=== PATIENT | male | born 1950 | race Caucasian/White ===

== ENCOUNTER 2025-02-05 07:48 | Outpatient (CLI) | payer OTHER, SELFPAY ==
--- OUTSIDE RECORDS SUMMARY | 2025-02-04 11:00 | XMS_ITS | Encounter Summary ---
Author Organization [facility] Address [address] [place] [address] Care Team Providers Care Garage Supervisor Name Role Phone Olga Baker MD Primary Care Provider [phone] Reason for Referral * Occupational Therapy (Urgent) - Authorized Specialty Diagnoses / Procedures Referred By Jass lantigua Referred To Contact Occupational Therapy Diagnoses Postoperative state S/P carpal tunnel release S/P cubital tunnel release Procedures OFFICE/OUTPATIENT NEW LOW MDM 30-44 MINUTES OFFICE/OUTPT VISIT,NEW,LEVL IV OFFICE/OUTPT VISIT,NEW,LEVL V OFFICE/OUTPT VISIT,EST,LEVL III OFFICE/OUTPT VISIT,EST,LEVL IV OFFICE/OUTPT VISIT,EST,LEVL V Daniel Pennington NP [address] [place] [address] Phone: tel: fax: [facility] [address] [place] [address] Phone: tel: fax: Referral ID Status Reason Start Date Expiration Date Visits Requested Visits Authorized [id number] Authorized Specialty Services 02/04/2025 01/21/2026 99 99 Reason for Visit * Reason Comments Postop Followup post op right ctr cu bital tunnel sx 01/27/25 Encounter Details Date Type Department Care Team (Late st Contact Info) Description 02/04/2025 11:00 AM CDT Office Visit [facility] [place] [address] [place] [address] Daniel Pennington NP [address] [facility] [place] [address] Postop Followup (post op right ctr cubital tunnel sx 01/27/25) Social History Tobacco Use Types Packs/Day Years Used Date Smoking Tobacco: Never Smokeless Tobacco: Never Tobacco Cessation:Counseling Given: No Alcohol Use Standard Drinks/Week Comments Yes 0 (1 standard drink = 0.6 oz pure alcohol) Just a couple of beers per month. PHQ-2 Answer Date Recorded Patient Health Questionnaire-2 Score 0 08/03/2024 Sex and Gender Information Value Date Recorded Sex Assigned at Male 08/03/2024 7:45 AM AD COPY WRITER Legal Sex Male 7:03 PM CDT Gender Identity Not on file Sexual Orientation Not on file documented as of this encounter Last Filed Vital Signs Vital Sign Reading Time Taken Comments Blood Pressure 106/66 02/04/2025 11:05 AM CDT Pulse 51 02/04/2025 11:05 AM CDT Temperature 36.8 C (98.3 F) 02/04/2025 11:05 AM CDT Respiratory Rate - - Oxygen Saturation - - Inhaled Oxygen Concentration - - Weight 73 kg (161 lb) 02/04/2025 11:05 AM CDT Height 174 cm (5' 8.5) 02/04/2025 11:05 AM CDT Body Mass Index 24.12 02/04/2025 11:05 AM CDT documented in this encounter Patient Instructions * Patient Instructions* Daniel Pennington NP - 02/04/2025 11:00 AM CDT Images from the original note were not included. Post-Operative Instructions [facility] Orthopedics and Sports Medicine Hand Surgery Congratulations on completing the first week after your surgery. Your dressing has been removed andyou are well on the way to recovery after your surgery. General Information You may be achy and sore for a couple of weeks after your surgery. The bruising and swelling that you notice will gradually resolve. Here is a reminder of your post-operative instructions. Surgery: right endoscopic carpal and cubital tunnel releases on 01/27/2025 At your appointment on 02/04/2025 Your dressing was removed Your stitches were removed Steri-strips were placed Over the next few weeks, it is especially important to take care of yourself. You may allow clean, running water from the faucet to contact your surgical site. This means that you may take a shower and wash your hair. Please pat the steri-strips dry. Please do not submerge your surgical site in standing water for the next 3 - 5 days. This means youshould not wash dishes, take a bath, use a hot tub or swim during this time. Allow the steri-strips to fall off. They will begin to peel up from the edges. You may cut off the ???tails?? , but please do not pull the steri-strips off your wound. After the steri-strips fall off and there are no scabs present, please perform scar massage using Aquaphor or Vaseline 4 times daily for 5 minutes at each time. You should do this for 12 weeks. Activity Please continue to move your thumb, fingers and wrist throughout the day. You have been referred to Occupational Therapy at [facility] in [place]. It is important to keep all appointments so that you can regain maximal use of your fingers, hand, and wrist. If youhave not heard from the OT department in 3 days, please call them at [phone]. Avoid local trauma or excessive pressure Lifting You may begin lifting light objects and gradually increase the amount of weight that you lift. If you need to use pain medications to lift things, you are lifting too much weight. Call our office at [phone] if you notice any signs of infection. This includes if you develop a fever, or if your surgical site becomes red, swollen, more painful or if you notice drainage. Taking Care of Yourself after Surgery Post-operative Scar Massage [facility] Department of Hand Surgery All About Scars Your body begins the healing process right after surgery. While your incision heals, a scar forms.Scar tissue is not like regular skin. Scar tissue is more rigid and less elastic than skin without a scar. Without proper care, your scar can become thick and cause adhesions. Adhesions are bands of scar tissue that can join two surfaces of the body that are usually separate. When this occurs, yourscar and the area around it can become hard, painful and can limit your ability to move without discomfort or pain. For your scar to heal properly and for it to be mobile and flexible, it is important to perform scar massage several times daily. While you should perform scar massage at home, it does not replace going to your Occupational Therapy appointments. In fact, you should also go to your occupational therapy appointments so that you can regain optimal function. What Is Scar Massage? Scar massage is an activity that you can do at home to help your scar heal, to make it less sensitive, and to avoid adhesions. This type of massage includes rubbing and deep pressure over the scar. When Should I Start Scar Massage? You can start massaging your scar when your steri-strips fall off and there are no scabs present. Do I Need Special Equipment or Supplies to Do Scar Massage? The only supplies that you need to perform scar massage are plain Vaseline??? (petroleum jelly) or Aquaphor??? (petroleum) without added aloe vera, colors or perfumes. You can buy these at most stores or pharmacies. How Do I Do Scar Massage? Place a small amount of Vaseline or Aquaphor directly on your scar. Using your other hand, put pressure on the scar over the Vaseline or Aquaphor and rub over the scarclockwise, counterclockwise, up and down and then side to side for 5 minutes, 2 - 4 times daily for12 weeks Questions or Concerns? If you have questions or concerns about how to do scar massage, please call our office at [phone] or send a Mezmer[employer] message. documented in this encounter Progress Notes * Daniel Pennington NP - 02/04/2025 11:00 AM CDT Images from the original note were not included. OFFICE VISIT SUBJECTIVE Reason for Visit: Postop Followup (post op right ctr cubital tunnel sx 01/27/25) History of Present Illness: Patient is here for post op evaluation, 1 week s/p Right ECTR and Right ECUTR performed by Dr. Violeta Brown on 01/27/2025. Has no new complaints or acute events to report, and describes uneventful recovery course with mildpost-op pain and minimal to no need for pain medications. Denies fevers, chills. Has resumed ADLs with minimal limitations. Patient reports resolution of pre-op night symptoms and painful paresthesias with ADLs. Reports no interval sensorimotor deficits and describes mild pillar pain associated with increase activity level. Patient verbalizes satisfaction with the surgical procedure. ROS: Constitutional: Negative for chills and fever. Respiratory: Negative for chest tightness and shortness of breath. Cardiovascular: Negative for chest pain and palpitations. Skin: Negative for rash and wound. Musculoskeletal: See HPI. Neurological: See HPI. Negative for light-headedness, dizziness History: Past Medical History[1] Past Surgical History[2] Family History[3] Social History[4] Medications and Allergies: Current Outpatient Medications: Ascorbic Acid (VITAMIN C) 100 MG Chew Tab, Chew 1 tablet by mouth 2 (two) times a day., Disp: , Rfl: Cyanocobalamin (VITAMIN B-12) 500 MCG SL Tab, Place 1 tablet under the tongue daily., Disp: , Rfl: Ferrous Sulfate (IRON) 325 (65 Fe) MG tablet, Take 1 tablet by mouth once daily with breakfast, Disp: 90 tablet, Rfl: 1 finasteride (PROSCAR) 5 MG tablet, Take 1 tablet (5 mg total) by mouth daily., Disp: , Rfl: fish oil 1000 MG Cap capsule, Take 1 capsule (1,000 mg total) by mouth daily., Disp: , Rfl: loratadine (CLARITIN) 10 MG tablet, Take 1 tablet (10 mg total) by mouth daily. (Patient taking differently: Take 1 tablet (10 mg total) by mouth daily as needed for Allergies.), Disp: 30 tablet, Rfl: 5 losartan (COZAAR) 25 MG tablet, Take 2 tablets (50 mg total) by mouth daily. (Patient taking differently: Take 1 tablet (25 mg total) by mouth daily.), Disp: 180 tablet, Rfl: 3 multi vitamin/minerals (THERA-M ENHANCED) tablet, Take 1 tablet by mouth daily., Disp: , Rfl: tamsulosin (FLOMAX) 0.4 MG Cap, Take 1 capsule (0.4 mg total) by mouth daily., Disp: 90 capsule, Rfl: 3 pravastatin (PRAVACHOL) 10 MG tablet, Take 1 tablet (10 mg total) by mouth nightly at bedtime. at bedtime (Patient not taking: Reported on 02/04/2025), Disp: 90 tablet, Rfl: 3 Review of patient's allergies indicates: Allergen Reactions Atorvastatin Unknown Poorly tolerated OBJECTIVE Vital Signs: Filed Vitals: 02/04/25 1105 BP: 106/66 Pulse: (!) 51 Temp: 98.3 ??F (36.8 ??C) TempSrc: Temporal Weight: 73 kg (161 lb) Height: 1.74 m (5' 8.5) Body mass index is 24.12 kg/m??. Physical Exam: Physical Exam Constitutional: He appears well-developed and well-nourished. Head: Normocephalic. Pulmonary/Chest: Effort unlabored. No respiratory distress. Neurological: He is alert and oriented to person, place, time and situation. Psychiatric: He has a normal mood and affect. Upper Extremity Exam: Right Upper Extremity Upper Arm : no tenderness, bruising, swelling, masses, deformities Elbow: Inspection/Palpation: Surgical scar appears well healed, clean and dry, without erythema, warmth, discharge, induration, tenderness, swelling, bruising, skin breakdown. All muscle compartments soft, no joint effusion present, no deformities noted, no masses present, no arthritic changes. Active ROM: Full active and passive range of motion of elbow. No interval neurological deficits compared to pre-op baseline. Forearm: no tenderness to palpation, no swelling, no forearm deformities noted, no masses present. Hand/Wrist : Inspection/Palpation: Surgical scars appear well healed, clean and dry, without erythema, warmth, discharge, induration, tenderness, swelling, bruising, skin breakdown. All muscle compartments soft, no joint effusion present, no deformities noted, no masses present, no arthritic changes. No crepitus hand/fingers on ROM testing, no deformities of hand or fingers. Good active ROM of thumb includingopposition, all fingers and wrist. Able to form a composite fist. No interval neurological deficitscompared to pre-op baseline. Capillary refill < 2 seconds. ASSESSMENT Jorden Ocampo was seen today for postop followup. Diagnoses and all orders for this visit: Postoperative state - Ambulatory referral to Occupational Therapy S/P carpal tunnel release - Ambulatory referral to Occupational Therapy S/P cubital tunnel release - Ambulatory referral to Occupational Therapy PLAN Treatment/Counselling: DISCUSSED UNEVENTFUL POST OP COURSE WITH GOOD OUTCOMES AND PROGNOSIS GIVEN CLINICAL COURSE THUS FAR. Instructed to not submerge the surgical site in water for the next 3 - 5 days, however may shower with clean running water from the tap, and afterwards, pat the area dry. Instructed to not remove steri-strips, but instead to allow them to fall off. Continue light activity with gradual increase in activity level and weight bearing as tolerated. Instructed in scar massage after steri-strips fall off, using Aquaphor or Vaseline 2-4 times daily x 5 minutes at each time. Recommendations for ROM exercises to maximize functional outcomes. Avoid local trauma or excessive pressure. Discussed signs of infection and need to return for assessment if these occur. OT orders written Post op instructions provided verbally and in writing. All questions were answered to patient's satisfaction. Patient voices understanding and agreement. Acknowledgment of shared decision making. Return to the clinic as needed. Portions of this note have been produced using speech recognition software and may contain errors related to that system including errors in grammar, punctuation, and spelling, as well as words and phrases that may be missing, incorrect or inappropriate. If there are any questions or concerns please feel free to contact the dictating provider for clarification. DANIEL PENNINGTON NP 02/04/2025 Cc. Olga Baker MD No ref. provider found [1] Past Medical History: Diagnosis Date Anemia Arthritis 2021 In both hands Cervical stress fracture Hernia cerebri ([facility]) Hypertension Influenza vaccine administered 2018 Intestinal obstruction ([facility]) 07/08/2012 Overview: Had to have surgical intervention Neuromuscular disorder ([facility]) 2023 Nerves in hand, loss of feeling, pain. Renal calculi [2] Past Surgical History: Procedure Laterality Date ABDOMINAL SURGERY COLONOSCOPY N/A 12/23/2019 LIMITED COLONOSCOPY performed by Devan Patricio MD at [facility] OR COLONOSCOPY N/A 12/30/2019 COLONOSCOPY performed by Devan Patricio MD at [facility] OR COLONOSCOPY FLX DX W/COLLJ SPEC WHEN PFRMD GASTRIC BYPASS HAND SURGERY Left 12/16/[address] Brown HAND SURGERY Left 12/16/[address] Brown HAND SURGERY Right 01/27/[address] Brown HAND SURGERY Right 01/27/[address] Brown HERNIA REPAIR 2013 N/A LITHOTRIPSY REMV CATARACT EXTRACAP,INSERT LENS Bilateral [3] Family History Problem Relation Name Age of Onset Diabetes Mother Linda Other (cardiac disorder) Mother Linda Other (CHF) Mother Linda Other (Hepatic failure) Mother Linda Heart Disease Mother Linda Diabetes Father Jorden Hypertension Father Jorden Other (cardiac disorder) Father Jorden Other (malignant neoplasm of kidney) Father Jorden Other (myocardial infarction) Father Jorden [4] Social History Tobacco Use Smoking status: Never Smokeless tobacco: Never Vaping Use Vaping status: Some Days Substances: CBD Substance Use Topics Alcohol use: Yes Comment: Just a couple of beers per month. Drug use: Yes Frequency: 5.0 times per week Types: Marijuana documented in this encounter Plan of Treatment Upcoming Encounters Date Type Department Care Team (Late st Contact Info) Description 02/08/2025 9:45 AM CDT Appointment [facility] [address] [place] [address] [place] [address] [place], [place] [id number] Daniel Pennington NP [address] [place] [address] 05/21/2025 7:40 AM AD COPY WRITER Laboratory Only [facility] Internal [facility] [address] [place] [address] 05/28/2025 7:40 AM AD COPY WRITER Office Visit [facility] Family & Internal [facility] [address] [place] [address] [place] [address] [facility]. [address] [address] Scheduled Referrals Name Type Priority Associated Diagnoses Orde r Schedule Ambulatory referral to Occupational Therapy Referral Routine Postoperative state S/P carpal tunnel release S/P cubital tunnel release Ordered: 02/04/2025 documented as of this encounter Visit Diagnoses Diagnosis Postoperative state- Primary Other postprocedural status S/P carpal tunnel release Other postprocedural status S/P cubital tunnel release Other postprocedural status documented in this encounter Additional Health Concerns Assessment Noted Time PHQ-9 Depression Total Score: 1 10/31/19 22 2:57 PM CDT documented as of this encounter Care Teams Garage Supervisor Relationship Specialty [place] [address] [facility]. [address] [place] [address] PCP - General FAMILY PRACTICE 10/18/22 documented as of this encounter
--- NOTE | 2025-02-05 07:55 | ECG_ITS ---
Test Date: 2025-02-05 08:09:53 Measurements Intervals Fries Rate: 51 P: 91 WA: 177 QRS: 37 QRSD: 99 T: 9 QT: 399 QTc: 369 Interpretive Statements SINUS BRADYCARDIA ST-T WAVE ABNORMALITY- INFERIOR LEADS BASELINE ARTIFACT- I, II, III, AVR, AVL, AVF BORDERLINE ECG No previous ECG available for comparison Electronically Signed On 02-05-2025 08:17:37 CDT by Derick Ziegler D.O.
--- OUTSIDE RECORDS SUMMARY | 2025-02-05 07:56 | XMS_ITS | Encounter Summary ---
Author Organization [facility] Address [address] [place] [address] Care Team Providers Care Rotational Moulding Operator Name Role Phone Tony Huerta DO Primary Care Provider Unav ailable Encounter Details Date Type Department Care Team (Late st Contact Info) Description 03/30/2003 Outpatient Historical [facility]3] Primary Care [address] [phone] Nery Cueto MD NO ADDRESS ON FILE Social History Tobacco Use Types Packs/Day Years Used Date Smoking Tobacco: Never Assessed Sex and Gender Information Value Date Recorded Sex Assigned at Not on file Legal Sex Male 2:37 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
--- OUTSIDE RECORDS SUMMARY | 2025-02-05 07:56 | XMS_ITS | Encounter Summary ---
Author Organization [facility] Address [address] [place] [address] Care Team Providers Care Public Space Attendant Name Role Phone Tony Huerta DO Primary Care Provider Unav ailable Encounter Details Date Type Department Care Team (Late st Contact Info) Description 10/30/2002 Outpatient Historical [facility] Gopi Altamirano MD [address] [place] [address] [place] [address] SCREENING MAL NEOP-COLON (Primary Dx) Social History Tobacco Use Types Packs/Day Years Used Date Smoking Tobacco: Never Assessed Sex and Gender Information Value Date Recorded Sex Assigned at Not on file Legal Sex Male 2:37 AM GAS DISTRIBUTION AND EMERGENCY CLERK Gender Identity Not on file Sexual Orientation Not on file documented as of this encounter Plan of Treatment Not on file documented as of this encounter Visit Diagnoses Diagnosis Special screening for malignant neoplasms, colon- Primary documented in this encounter Care Teams Public Space Attendant Relationship Specialty Start Date End Date Tony Huerta DO NO ADDRESS ON FILE PCP - General 10/30/02 documented as of this encounter
--- OUTSIDE RECORDS SUMMARY | 2025-02-05 07:56 | XMS_ITS | Encounter Summary ---
Author Organization [facility] Address 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
--- OUTSIDE RECORDS SUMMARY | 2025-02-05 07:56 | XMS_ITS | Encounter Summary ---
Author Organization [facility] Address [address] [place] [address] Care Team Providers Care Mining Engineer Name Role Phone Tony Huerta DO Primary Care Provider Unav ailable Encounter Details Date Type Department Care Team (Late st Contact Info) Description 12/24/2002 Outpatient Historical [facility] Primary Care [address] [phone] Tony Heurta DO NO ADDRESS ON FILE Social History Tobacco Use Types Packs/Day Years Used Date Smoking Tobacco: Never Assessed Sex and Gender Information Value Date Recorded Sex Assigned at Not on file Legal Sex Male 2:37 AM WEB CONSULTANT Gender Identity Not on file Sexual Orientation Not on file documented as of this encounter Plan of Treatment Not on file documented as of this encounter Visit Diagnoses Not on filedocumented in this encounter Care Teams Mining Engineer Relationship Specialty Start Date End Date Tony Huerta DO NO ADDRESS ON FILE PCP - General 10/30/02 documented as of this encounter
--- OUTSIDE RECORDS SUMMARY | 2025-02-05 07:56 | XMS_ITS | Encounter Summary ---
Author Organization [facility] Address 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
--- OUTSIDE RECORDS SUMMARY | 2025-02-05 07:56 | XMS_ITS | Encounter Summary ---
Author Organization [facility] Address 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
--- OUTSIDE RECORDS SUMMARY | 2025-02-05 07:56 | XMS_ITS | Encounter Summary ---
Author Organization [facility] Address 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
--- OUTSIDE RECORDS SUMMARY | 2025-02-05 07:56 | XMS_ITS | Encounter Summary ---
Author Organization [facility] Address 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
--- OUTSIDE RECORDS SUMMARY | 2025-02-05 07:56 | XMS_ITS | Encounter Summary ---
Author Organization [facility] Address [address] [place] [address] Care Team Providers Care Laboratory Animal Caretaker Name Role Phone Tony Huerta DO Primary Care Provider Unav ailable Encounter Details Date Type Department Care Team (Late st Contact Info) Description 04/30/2003 Outpatient Historical 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
--- OUTSIDE RECORDS SUMMARY | 2025-02-05 07:56 | XMS_ITS | Encounter Summary ---
Author Organization [facility] Address 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
--- OUTSIDE RECORDS SUMMARY | 2025-02-05 07:56 | XMS_ITS | Encounter Summary ---
Author Organization [facility] Address 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
--- OUTSIDE RECORDS SUMMARY | 2025-02-05 07:56 | XMS_ITS | Encounter Summary ---
Author Organization [facility] Address 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
--- OUTSIDE RECORDS SUMMARY | 2025-02-05 07:56 | XMS_ITS | Encounter Summary ---
Author Organization [facility] Address 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
--- OUTSIDE RECORDS SUMMARY | 2025-02-05 07:57 | XMS_ITS | Encounter Summary ---
Author Organization [facility] Address [address] [place] [address] Care Team Providers Care Head Grinder Name Role Phone Olga Baker MD Primary Care Provider [phone] Encounter Details Date Type Department Care Team (Late st Contact Info) Description 09/01/2024 Interactive Investor[employer] Message Enc [facility] Medical Group Family & Internal Medicine [address] [phone] [place] [id number] [place] [address]. [address] [place] [address] Celecoxib Social History Tobacco Use Types Packs/Day Years Used Date Smoking Tobacco: Never Smokeless Tobacco: Never Alcohol Use Standard Drinks/Week Comments Yes 0 (1 standard drink = 0.6 oz pure alcohol) Just a couple of beers per month. PHQ-2 Answer Date Recorded Patient Health Questionnaire-2 Score 0 08/03/2024 Sex and Gender Information Value Date Recorded Sex Assigned at Male 08/03/2024 7:45 AM CREATIVE MANAGER Legal Sex Male 7:03 PM CDT Gender Identity Not on file Sexual Orientation Not on file documented as of this encounter Progress Notes * Alesia Holman MA - 09/02/2024 8:37 AM CDT See patients Tittathart message documented in this encounter Plan of Treatment Upcoming Encounters Date Type Department Care Team (Late st Contact Info) Description 02/08/2025 9:[address] [facility] [address] [place] [address] [place] [address] [place] [address] Daniel Pennington, FLORENTINO [address] [place] [address] 05/21/2025 7:40 AM CREATIVE MANAGER Laboratory Only [facility] Family & Internal [facility] [address] [place] [address] 05/28/2025 7:40 AM CREATIVE MANAGER Office Visit [facility] Internal [facility] [address] [place] [address] [place] [address] [facility] [address] [place] [address] documented as of this encounter Visit Diagnoses Not on filedocumented in this encounter Additional Health Concerns Assessment Noted Time PHQ-9 Depression Total Score: 1 10/31/19 22 2:57 PM CDT documented as of this encounter Care Teams Head Grinder Relationship Specialty [place] [address] [address] [place] [address] PCP - General FAMILY PRACTICE 10/18/22 documented as of this encounter
--- OUTSIDE RECORDS SUMMARY | 2025-02-05 07:57 | XMS_ITS | Encounter Summary ---
Author Organization [facility] Address [address] [place] [address] Care Team Providers Care Routing Equipment Tender Name Role Phone Rekha Helms MD Primary Care Provider [phone] Olga Baker MD Primary Care Provider [phone] Encounter Details Date Type Department Care Team (Late Contact Info) Description 12/28/2019 Prep for Procedure [facility] Day [facility] [address] [place], [place] [id number] Devan Patricio MD [address] [address] Social History Tobacco Use Types Packs/Day Years Used Date Smoking Tobacco: Never Smokeless Tobacco: Never Alcohol Use Standard Drinks/Week Comments Yes 0 (1 standard drink = 0.6 oz pur e alcohol) socially PHQ-2 Answer Date Recorded PHQ-2 Score - If the patient scores above 3, please move on to questions 3-9 0 12/02/2019 Sex and Gender Information Value Date Recorded Sex Assigned at Male 08/03/2024 7:45 AM PEST CONTROL WORKER HELPER Legal Sex Male 7:03 PM CDT Gender Identity Not on file Sexual Orientation Not on file COVID-19 Exposure Response Date Recorded In the last month, have you been in contact with someone who was confirmed or suspected to have Coronavirus / COVID-19? No / Unsure 12/30/2019 9:43 AM CDT documented as of this encounter Plan of Treatment Upcoming Encounters Date Type Department Care Team (Late st Contact Info) Description 02/08/2025 9:[address] [facility] [address] [place] [address] [place] [address] [place] [address] Daniel Pennington, LINING BRUSHER [address] [place] [address] 05/21/2025 7:40 AM PEST CONTROL WORKER HELPER Laboratory Only [facility] Family & Internal [facility] [address] [place] [address] 05/28/2025 7:40 AM PEST CONTROL WORKER HELPER Office Visit [facility] Family & Internal [address] [address] [place] [address] [address] [place] [address] documented as of this encounter Visit Diagnoses Not on filedocumented in this encounter Additional Health Concerns Infection Onset Date Last Indicated Resolved Time COVID-19 Rule Out 12/28/2019 12/28/2019 12/30/2019 12:28 AM CDT documented as of this encounter Care Teams Routing Equipment Tender Relationship Specialty Start Date End Date Rekha Helms MD PCP - General INTERNAL MEDICINE 12/09/19 10/17/22 [place] [address] [address] [place] [address] PCP - General FAMILY PRACTICE 10/18/22 documented as of this encounter
--- OUTSIDE RECORDS SUMMARY | 2025-02-05 07:57 | XMS_ITS | Encounter Summary ---
Author Organization [facility] Address [address] [place] [address] Care Team Providers Care Appointment Manager Name Role Phone Olga Baker MD Primary Care Provider [phone] Encounter Details Date Type Department Care Team (Late st Contact Info) Description 11/26/2023 [employer] Message Enc [facility] Medical Group Family & Internal Medicine [facility] [address] [place] [address] [facility] Provider concern Social History Tobacco Use Types Packs/Day Years Used Date Smoking Tobacco: Never Smokeless Tobacco: Never Alcohol Use Standard Drinks/Week Comments Yes 0 (1 standard drink = 0.6 oz pure alcohol) Just a couple of beers per month. PHQ-2 Answer Date Recorded Patient Health Questionnaire-2 Score 1 10/30/2023 Sex and Gender Information Value Date Recorded Sex Assigned at Male 08/03/2024 7:45 AM LINSEED OIL ORDER FILLER Legal Sex Male 7:03 PM CDT Gender Identity Not on file Sexual Orientation Not on file documented as of this encounter Plan of Treatment Upcoming Encounters Date Type Department Care Team (Late st Contact Info) Description 02/08/2025 9:[address] [facility] [address] [place], [place] [id number] [place] [address] [place], [place] [id number] Daniel Pennington, STRESS ANALYST [address] [place] [address]. [place], [place] [id number] 05/21/2025 7:40 AM LINSEED OIL ORDER FILLER Laboratory Only [facility] Family & Internal Medicine [address] [address] 05/28/2025 7:40 AM LINSEED OIL ORDER FILLER Office Visit [facility] Family & Internal [address] [address] [place] [address] [employer] [address] [place] [address] documented as of this encounter Visit Diagnoses Not on filedocumented in this encounter Additional Health Concerns Assessment Noted Time PHQ-9 Depression Total Score: 1 10/31/19 22 2:57 PM CDT documented as of this encounter Care Teams Appointment Manager Relationship Specialty [place] [address] [address] [place] [address] PCP - General FAMILY PRACTICE 10/18/22 documented as of this encounter
--- OUTSIDE RECORDS SUMMARY | 2025-02-05 07:57 | XMS_ITS | Encounter Summary ---
Author Organization [facility] Address 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
--- OUTSIDE RECORDS SUMMARY | 2025-02-05 07:57 | XMS_ITS | Encounter Summary ---
Author Organization [facility] Address 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
--- OUTSIDE RECORDS SUMMARY | 2025-02-05 07:57 | XMS_ITS | Encounter Summary ---
Author Organization [facility] Address 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
--- OUTSIDE RECORDS SUMMARY | 2025-02-05 07:57 | XMS_ITS | Clinical Summary ---
Author Organization [facility] Address [address] 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 Gender Identity Not on file Sexual Orientation Not on file Plan of Treatment Health Maintenance Due Date Last Done Comments DTAP/TDAP/TD VACCINES (1 - Tdap) 1970 COLORECTAL SCREENING 02/12/1996 Colorectal Cancer Screening 02/12/1996 FIT-DNA Q 3 years 02/12/1996 FIT/FOBT Q 1 year 02/12/1996 Flex Sig/CT Colonography Q 5 years 02/12/1996 PNEUMOCOCCAL VACCINE 50+ YEARS (1 of 1 - PCV) 02/12/20 ZOSTER VACCINE (1 of 2) 2001 INFLUENZA VACCINE (#1) 2025 RSV VACCINE (60+ or ) (1 - 1-dose 75+ series) 2026 Care Teams Guard Immigration Relationship Specialty Start Date End Date Tony Huerta DO NO ADDRESS ON FILE PCP - General 10/30/02
--- OUTSIDE RECORDS SUMMARY | 2025-02-05 07:57 | XMS_ITS | Clinical Summary ---
Author Organization [facility] Address [address] [place] [address] Care Team Providers Care Production Control Analyst Name Role Phone Olga Baker MD Primary Care Provider [phone] Allergies Active Allergy Reactions Criticality Noted Date Comments Atorvastatin Unknown Low 03/29/2015 Poorly tolerated Medications fish oil 1000 MG Cap capsule Take 1 capsule (1,000 mg total) by mouth daily. 05/22/20 16 Active multi vitamin/minerals (THERA-M ENHANCED) tablet Take 1 tablet by mouth daily. 01/14/20 18 Active Cyanocobalamin (VITAMIN B-12) [address] 1 tablet under the tongue daily. 02/08/20 18 Active loratadine (CLARITIN) 10 MG tabletIndications: Seasonal allergies Take 1 tablet (10 mg total) by mouth daily. 30 tablet 5 11/05/19 23 Active Additional Information Patient taking differently:10 mg OralDAILY PRN, Allergies, Reported on 02/04/2025 finasteride (PROSCAR) 5 MG tablet Take 1 tablet (5 mg total) by mouth daily. 09/14/19 24 Active Ascorbic Acid (VITAMIN C) 100 MG Chew Tab Chew 1 tablet by mouth 2 (two) times a day. Active pravastatin (PRAVACHOL) 10 MG tabletIndications: Mixed hyperlipidemia Take 1 tablet (10 mg total) by mouth nightly at bedtime. at bedtime 90 tablet 3 08/03/19 25 Active Additional Information Patient not taking.Reported on 02/04/2025 tamsulosin (FLOMAX) 0.4 MG CapIndications:Erik ign prostatic hyperplasia with urinary hesitancy Take 1 capsule (0.4 mg total) by mouth daily. 90 capsule 3 08/03/19 25 Active losartan (COZAAR) 25 MG tabletIndications: Primary hypertension Take 2 tablets (50 mg total) by mouth daily. 180 tablet 3 08/03/19 25 Active Additional Information Patient taking differently: 25 mgOral Daily, Reported on 02/04/2025 Ferrous Sulfate (IRON) 325 (65 Fe) MG tabletIndications: Iron deficiency anemia secondary to inadequate dietary iron intake Take 1 tablet by mouth once daily with breakfast 90 tablet 1 10/28/19 25 Active traMADol (ULTRAM) 50 MG tabletIndications: Acute Pain < 7 Day Supply Take 1 tablet (50 mg total) by mouth every 6 (six) hours as needed for Pain. Indications: Acute Pain < 7 Day Supply 20 tablet 01/28/20 25 025 Discontin ued(Thera py completed ) HYDROcodone-acetam inophen (NORCO) 5-325 MG tabletIndications: Acute Pain < 7 Day Supply Take 1-2 tablets by mouth every 6 (six) hours as needed for Pain. Indications: Acute Pain < 7 Day Supply For Moderate Pain 15 tablet 01/28/20 25 025 Discontin ued(Thera py completed ) naloxone (NARCAN) 4 MG/0.1ML nasal spray 1 spray by Nasal route as needed for Opioid reversal. may repeat every 2 to 3 minutes in alternating nostrils until medical assistance becomes available 1 each 01/28/20 25 025 Discontin ued(Thera py completed ) Active Problems Problem Noted Date Diagnosed Date Carpal tunnel syndrome on left 01/21/2025 Cubital tunnel syndrome on left 01/21/2025 Carpal tunnel syndrome on right 12/02/2024 Cubital tunnel syndrome on right 12/02/2024 Iron deficiency anemia secon humera to inadequate dietary iron intake 05/13/2023 Seasonal allergies 05/13/2023 Benign prostatic hyperplasia with urinary hesita ncy 11/04/2022 Paronychia of great toe of left foot 03/24/2020 Ingrowing toenail of left foot 03/18/2020 Anemia, unspecified type 12/25/2019 Overview (12/25/2019): Added automatically from request for surgery [id number] Screening for colon cancer 12/01/2019 Overview (12/01/2019): Added automatically from request for surgery [id number] Lump in testis 07/15/2019 Assessment & Plan (07/15/2019 12:28 PM POULTRY PACKER): Painful small. Would like to see urologist so referral placed Mixed hyperlipidemia 05/22/2016 Assessment & Plan (07/15/2019 12:27 PM POULTRY PACKER): Con't fish oil. Will get cholesterol panel Type 2 diabetes mellitus wit hout complication ([facility]) 06/07/2015 Overview (11/23/2024): Overview: Bariatric surgery 2011, well controlled since then. 05/31 hgba1c 5.8% Bariatric surgery 2011, well controlled since then. 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 Chronic prostatitis 05/26/2013 Overview (08/25/2018): Overview: Also mild bilat epididymitis. 01/22, saw Dr. Proctor. 05/29 currently seeing a uro in [facility] Essential (primary) hypertension 05/26/2013 Overview (08/25/2018): Overview: 05/29 well controlled on cozaar Assessment & Plan (07/15/2019 12:26 PM POULTRY PACKER): Well controlled. Will get labs con't current regimen Calculus of kidney 07/08/2012 Overview (08/25/2018): Overview: Had lithotripsy Metabolic syndrome 11/29/2009 Resolved Problems Problem Noted Date Diagnosed Date Resolved Date Intestinal obstruction ([facility]) 07/08/2012 07/15/2019 Overview (08/25/2018): Overview: Had to have surgical intervention Encounters Date Type Department Care Team Description 02/04/2025 11:00 AM CDT Office Visit [facility] Orthopedic & Sports Medicine [facility] [address] [place] [address] Daniel Pennington NP Postop Followup (post op right ctr cubital tunnel sx 01/27/25) 02/04/2025 Travel 01/27/2025 1:23 PM CDT - 01/27/2025 2:[address] [place] [address] Quinton Brown MD right endoscopic carpal tunnel release 01/27/2025 1:06 PM CD[address] Anesthesia Event [facility] [place] [address] Aubree Ulloa MD Jackson, Samantha Rae, FNP 01/27/2025 10:09 AM CDT - 01/27/2025 4:00 PM CDT Hospital Encounter [facility] [place] [address] Quinton Brown MD Discharge Disposition: Home or Self Care (Routine Discharge) 01/27/2025 Travel 01/22/2025 Sling Message Enc [facility] [place] [address] [facility] Provider SURGERY INSTRUCTIONS 01/21/2025 8:40 AM CDT Office Visit [facility] Orthopedic & Sports [facility] [address] [place] [address] Daniel Pennington NP Follow Up (RT CTS and Cubital tunnel) 01/21/2025 Prep for Procedure [facility] Orthopedic & Sports Medicine - [facility] [address] [place] [address] Quinton Brown MD 01/21/2025 Travel 01/17/2025 Results Follow-Up [facility] Family & Internal [facility] [address] [place] [phone] Olga Baker MD TISSUE EXAM BY PATHOLOGIST (QUEST ONLY) 01/08/2025 2:00 PM CDT Office Visit [facility] Family & Internal [facility] [address] [place] [address] Olga Baker MD Weight Check 01/08/2025 Scan [employer] HEALTH INFO SRVCS Scanned, [facility] 01/08/2025 Travel 01/06/2025 9:06 AM CDT - 01/06/2025 11:59 PM CDT Hospital Encounter [facility] Occupational Therapy [address] [place] [address] Ciara Gómez V, Daniel Botello NP Carpal Tunnel Discharge Disposition: Home or Self Care (Routine Discharge) 01/06/2025 Travel 01/01/2025 Telephone [facility] Internal [facility] [id number] [place] [phone] Olga Baker MD Referral 12/24/2024 1:43 PM CDT - 12/24/2024 11:59 PM CDT Hospital Encounter [facility] Occupational Therapy [address] [place] [phone] Ciara Gómez OT Loar, Ricki S, NP Carpal Tunnel Discharge Disposition: Home or Self Care (Routine Discharge) 12/24/2024 Travel 12/23/2024 8:40 AM CDT Office Visit [facility] Orthopedic & Sports Medicine - [place] [address] [place] [address] Daniel Pennington NP Postop Followup (post op left ctr cubital tunnel sx 12/16/04) 12/23/2024 Travel 12/16/2024 8:30 AM CDT - 12/16/2024 9:57 AM CDT Surgery [facility] [place] [address] Quinton Brown MD left endoscopic carpal tunnel release 12/16/2024 8:01 AM CDT Anesthesia Event [facility] [address] Aubree Ulloa MD Jackson, Samantha Rae, BUILD TECHNICIAN 12/16/2024 6:10 AM CDT - 12/16/2024 10:33 AM CDT Hospital Encounter [facility] [place] [address] Quinton Brown MD Discharge Disposition: Home or Self Care (Routine Discharge) 12/16/2024 Travel 12/09/2024 Travel 12/02/2024 Prep for Procedure [facility] Orthopedic & Sports Medicine [facility] [address] [place] [address] Quinton Brown MD 12/01/2024 8:00 AM CDT Office Visit [facility] Orthopedic & Sports Medicine [facility] [address] [place] [address] Daniel Pennington, FLORENTINO New Patient (Bilateral CTS) 12/01/2024 Travel 11/23/2024 7:40 AM CDT Office Visit [facility] Family & Internal Medicine [address] [phone] Olga Baker MD Follow Up; Pain (Pt c/o increased pain from nerve conduction on 11/16. ) 11/23/2024 Telephone [facility] Family & Internal Medicine [address] [phone] Olga Baker MD Follow Up Call 11/23/2024 Travel 11/20/2024 Telephone [facility] Family & Internal Medicine [facility] [address] [place] [address] Olga Baker MD Results; Question 11/17/2024 Results Follow-Up [facility] Family & Internal Medicine [facility] [address] [place] [address] Olga Baker MD NCVS\EMG (OFallon) 11/16/2024 8:00 AM CDT Office Visit [facility] Multispecialty Care - [facility] [address] [facility], [address] [place] [address] Olga Baker MD Govindarajan, Raghav, MD EMG Testing (BUE*CARPAL TUNNEL SYNDROME LEFT WRIST) 11/16/2024 Scan [employer] INFO SRVCS Scanned, [facility] EMG (SCAN) 11/16/2024 Travel from Last 3 Months Immunizations Immunization Administration Dates Next Due Fluarix (IIV4) 04/23/2023 Fluzone High Dose (IIV, triv alent, 0.5mL) 05/01/2024 Fluzone High Dose - >Age 65 (Prefilled Syringe) 05/01/2022,03/24/2021,03/27/2020,2018,05/22/2016 Influenza (Generic) 07/15/2019, 5,05/26/2013,2010,03/03/2010,06/03/2009,06/24/2008 Influenza Adult (Generic) 05/22/2016 PFIZER COVID-19 (ARGUETA CAP), MRNA, LNP-S, PF, 30 MCG/0.3 ML [place], IM 10/30/2021 PFIZER COVID-19 (ORIGINAL FORMULATION, PURPLE CAP) mRNA, LNP-S, PF, 30 MCG/0.3 ML DOSE 05/05/2021,09/16/2020,08/26/2020 PFIZER COVID-19 BIVALENT (12 +) mRNA, LNP-S, PF, 30 MCG/0.3 ML DOSE 07/06/2022 Pneumococcal (Pneumovax 23) 07/15/2019, 6 Pneumococcal (Prevnar 13) 05/03/2021 Shingrix 11/27/2019,09/25/2019 Td (Tenivac) preservative free 12/02/2019 Tdap (Generic) 07/08/2012 Zoster (Zostavax) [address] Unt/0.65Ml 07/08/2012 Family History Medical History Relation Comments Diabetes Father Hypertension Father cardiac disorder Father malignant neoplasm of kidney Father myocardial infarction Father CHF Mother Diabetes Mother Heart Disease Mother Hepatic failure Mother cardiac disorder Mother Relation Status Comments Father Mother Social History Tobacco Use Types Packs/Day Years [...] Sex Assigned at Male 08/03/2024 7:45 AM POULTRY PACKER Legal Sex Male 7:03 PM CDT Gender Identity Not on file Sexual Orientation Not on file Last Filed Vital Signs Vital Sign Reading Time Taken Comments Blood Pressure 106/66 02/04/2025 11:05 AM CDT Pulse 51 02/04/2025 11:05 AM CDT Temperature 36.8 C (98.3 F) 02/04/2025 11:05 AM CDT Respiratory Rate 16 01/27/2025 3:30 PM CDT Oxygen Saturation 96% 01/27/2025 3:30 PM CDT Inhaled Oxygen Concentration - - Weight 73 kg (161 lb) 02/04/2025 11:05 AM CDT Height 174 cm (5' 8.5) 02/04/2025 11:05 AM CDT Body Mass Index 24.12 02/04/2025 11:05 AM CDT Plan of Treatment Upcoming Encounters Date Type Department Care Team (Late st Contact Info) Description 02/08/2025 9:45 AM CDT Appointment [facility] Occupational Therapy [address] [place] [address] Ciara [place] [address] [place], [place] [phone] Daniel Pennington NP [address] [place] [address] 05/21/2025 7:40 AM POULTRY PACKER Laboratory Only [facility] Family & Internal [facility] [address] [place] [address] 05/28/2025 7:40 AM POULTRY PACKER Office Visit [facility] & Internal [facility] [id number] [place] [phone] [place] [id number] [facility] [place] [address] Health Maintenance Due Date Last Done Comments Diabetes: Retinopathy Eye Exam 1968 Annual Medicare Wellness Visit 02/12/2016 COVID-19 Vaccine ( season) 2024 07/25/2023, 07/06/2022, 10/30/2021, Additional history exists Hemoglobin A1C 03/03/2025 08/31/2024, 05/17, 05/01/2024, Additional history exists Lipid Panel 05/01/2025 05/01/2024, 04/18, 10/22/2022, Additional history exists Kidney Health Evaluation 08/31/2025 08/31/2024 RSV Immunization or 60+ Years (1 - 1-dose 75+ series) 2026 DTaP, Tdap and Td Vaccines (3 - Td or Tdap) 12/01/2029 12/02/2019, 07/08/2012 Colorectal Cancer Screening Colonoscopy (10 Years) 12/29/2029 12/30/2019, 12/30/2019, 12/23/2019, Additional history exists Zoster Vaccines Completed 11/27/2019, 09/15, 07/08/2012 Hepatitis C Completed 05/11/2020 Pneumococcal Vaccine: 50+ Years Completed 05/03/2021, 07/15/2019, 06/17/2005 PHQ-2 (Physician [place]) Completed 08/03/2024 Meningococcal B Vaccine Aged Out No l onger eligible based on patient's age to complete this topic Meningococcal Vaccine Aged Out No dom mario eligible based on patient's age to complete this topic RSV Immunizations Under 20 Months Aged Out No longer eligible based on patient's age to complete this topic Procedures Procedure Name Priority Date/Time Associated Diagnosis Comments PROCEDURE GENERIC 01/27/2025 2:4 7 PM CDT WRIST ARTHROSCOP,RELEASE XVERS LIG 01/27/2025 1:06 PM CDT Carpal tunnel syndrome on left Cubital tunnel syndrome on left Case Notes SCHED BY HARJINDER 01/21/2025 JOSE PHONE ASSESS WRIST ARTHROSCOP,RELEASE XVERS LIG 01/27/2025 1:06 PM CDT Carpal tunnel syndrome on left Cubital tunnel syndrome on left Case Notes SCHED BY HARJINDER 01/21/2025 JOSE PHONE ASSESS TISSUE EXAM BY PATHOLOGIST Routine 01/08/2025 2:25 PM CDT Atypical pigmented skin lesion BIOPSY Routine 01/08/2025 2:00 PM CDT Atypical pigmented skin lesion WRIST ARTHROSCOP,RELEASE XVERS LIG 12/16/2024 8:01 AM CDT Carpal tunnel syndrome on right Cubital tunnel syndrome on right Case Notes SCHED BY HARJINDER 12/03/2024 L[facility] PHONE ASSESS WRIST ARTHROSCOP,RELEASE XVERS LIG 12/16/2024 8:01 AM CDT Carpal tunnel syndrome on right Cubital tunnel syndrome on right Case Notes SCHED BY HARJINDER 12/03/2024 [facility] PHONE ASSESS EMG Routine 11/16/2024 8:00 AM CDT Carpal tunnel syndrome of left wrist EMG GENERIC (SCAN ORDER) 11/16/2024 HEMOGLOBIN, GLYCOSYLATED Routine 08/31/2024 7:03 AM CDT Prediabetes LIPID PANEL Routine 05/01/2024 8:05 AM POULTRY PACKER Mixed hyperlipidemia HEPATITIS C ANTIBODY W/RFX TO HCV RNA Routine 05/11/2020 7:35 AM POULTRY PACKER Need for hepatitis C screening test COLONOSCOPY GENERIC (SCAN ORDER) Routine 12/30/2019 from Last 3 Months or Most Recently Relevant to Health Maintenance Results * PROCEDURE GENERIC (01/27/2025 2:47 PM CDT) Quinton Brown MD [facility] Edited Result - Final * TISSUE EXAM BY PATHOLOGIST (QUEST ONLY) (01/08/2025 2:25 PM CDT) CLINICAL INFORMATION: None given [employer] [place] PATHOLOGIST (QST PAP) [facility] [employer] [place] Comment: Ramakrishna Smart Jr., M.D. Board Certified in Anatomic Pathology, Clinical Pathology and Cytopathology, Specializing in Urologic Pathology (electronic signature) Pathologist Release Date/Time: 01/13/2025 02:32PM SOURCE (QST) Skin, left ear, biopsy [facility] [employer] [place] SPEC DESCRIPTION [facility] Comment: Specimen is received in 10% neutral buffered formalin, labeled with multiple patient identifier(s) and consists of one small piece from a skin biopsy measuring 0.2 x 0.2 x 0.2 cm, irregular in shape and shelby-brown in color. The margins are inked green. The specimen is entirely submitted in one cassette(s). Gross exam(s) performed at: [employer] [address] [id number] [employer]: HARRISON HARRIS MD PRIMARY DIAGNOSIS: Hypertrophic actinic keratosis. [employer] [place] 01/08/2025 2:25 PM CDT 01/11/2025 8:15 PM CDT Narrative Resulting Agency Comment Performing Organization Information: Site ID: [id number] [facility]: [facility] Address: [address] [place] [id number] Director: Harrison Harris Olga Baker MD PATHOLOGY/CYTOLOGY ORDERABLES Final Result [facility] - [place] [address] [phone], [place] * Lesion Biopsy (01/08/2025 2:00 PM CDT) Narrative Olga Baker MD - 01/08/2025 2:00 PM CDT Olga Baker MD 01/19/2025 6:42 AM Lesion Biopsy Date/Time: 01/08/2025 2:00 PM Performed by: Olga Baker MD Authorized by: Olga Baker MD Procedure Details - Skin Biopsy: Body area: head/neck Head/neck location: L ear Initial size (mm): 2 Final defect size (mm): 2 Malignancy: malignancy unknown Destruction method: shave biopsy us Olga Baker MD PROCEDURE/MINOR SURGICAL ORDER DANII Final Result * NCVS\EMG ([facility]) (11/16/2024 8:00 AM CDT) Narrative Isaak Knapp MD - 11/16/2024 8:00 AM CDT Isaak Knapp MD 11/16/2024 11:42 PM .Brief history: Mr. Griffin has numbness and tingling in both hands left worse than right. He has also noticed cramping, and weakness and drops things. He has neck pain but it is localized. Limited Neurological Exam: Strength in the upper limb bilaterally is 5 out of 5. Reflexes are 2+ and symmetric. Juana's was negative. Tinel sign was positive at the wrist and elbow bilaterally. Electrodiagnostic testing: For sensory nerve conduction studies, the amplitude is measured [id number], the latency reported is the distal peak latency, and the conduction velocity, if measured, is determined from onset latencies and is over the forearm. For motor nerve conduction studies, the amplitude is measured [id number], the latency reported is the distal onset latency, the conduction velocity is calculated over the forearm, and the F wave latency is the minimum latency. Unless otherwise noted, the hand temperature was monitored continuously and remained between 32 C and 36 C during the performance of the NCSs.The study was performed with a concentric needle electrode. Fibrillation and fasciculation activity is graded from none (0) to continuous (4+). The configuration and recruitment pattern of motor unit action potentials under voluntary control, if not normal, are described below. Abbreviations: NCS= nerve conduction study SNAP= sensory nerve action potential CMAP= compound muscle action potential MUP= motor unit potential EMG= electromyogram F IBS= fibrillations PS W's= positive sharp waves .CTS severity scale: mild: prolonged sensory nerve conduction latency, normal distal motor latency; moderate: prolonged sensory latency and prolonged distal motor latency; severe: absent sensory latency, prolonged distal motor latency Charlie LUQUE. A neurophysiological grading scale for carpal tunnel syndrome. Muscle Nerve. 1999;23(8):1280-3. 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 Neurol Sci. 2000;22(1):11-6. Summary of findings: Bilateral median motor NCS shows long latency Bilateral ulnar motor NCS shows slowing across the elbow Bilateral median sensory NCS shows prolonged latency right worse than left Bilateral ulnar sensory NCS shows small snap amplitude Bilateral radial sensory NCS is normal Bilateral median orthodromic mixed NCS shows prolonged latency with right median orthodromic mixed NCS shows small amplitude Bilateral ulnar orthodromic mixed NCS shows normal amplitude Needle EMG of the bilateral upper limb [five muscles tested on each side] shows chronic neurogenic motor potentials in abductor pollicis brevis. Conclusion: This study shows evidence of a bilateral moderate median mononeuropathy at the wrist [carpal tunnel syndrome] . 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 There is no evidence of a superimposed cervical radiculopathy. Nerve conduction and EMG is an extension of history and examination. Clinical correlation is recommended for the electrodiagnostic findings. Olga Baker MD NEUROLOGY ORDERABLES Final Res ult * EMG GENERIC (SCAN ORDER) (11/16/2024) 11/16/2024 [facility] Scanned SCANNING Final Resu lt * (ABNORMAL) HEMOGLOBIN, GLYCOSYLATED (08/31/2024 7:03 AM CDT) HGB A1C 5.7(H) <5.7 % of total Hgb [facility] Comment: For someone without known diabetes, a hemoglobin A1c value between 5.7% and 6.4% is consistent with prediabetes and should be confirmed with a follow-up test. For someone with known diabetes, a value <7% indicates that their diabetes is well controlled. A1c targets should be individualized based on duration of diabetes, age, comorbid conditions, and other considerations. This assay result is consistent with an increased risk of diabetes. Currently, no consensus exists regarding use of hemoglobin A1c for diagnosis of diabetes for children. 08/31/2024 7:03 AM CDT 09/01/2024 8:36 AM CDT Narrative Resulting Agency Comment Performing Organization Information: Site ID: [id number] Name: [facility] Address: [address] [place] [place] [address] Director: Shirlene Fregoso MD Olga Baker MD LABORATORY Final Result [facility] [id number] [place], [place] [address] [address], * LIPID PANEL (05/01/2024 8:05 AM POULTRY PACKER) [facility] CHOLESTEROL 162 <200 mg/dL [facility] HDL 56 > OR = 40 mg/dL [facility] TRIGLYCERIDES 94 <150 mg/dL [facility] LDL (CALCULATED) 87 mg/dL (calc) [facility] Comment: Reference range: <100 Desirable range <100 mg/dL for primary prevention; <70 mg/dL for patients with CHD or diabetic patients with > or = 2 CHD risk factors. LDL-C is now calculated using the Kole calculation, which is a validated novel method providing better accuracy than the Friedewald equation in the estimation of LDL-C. Vicente JOHNSON et al. AURA. 2013;310(19): 4761-0527 (http://education.Cubeit.fm.Re[employer] Electric/faq/UXY511) CHOL/HDL RATIO 2.9 <5.0 (calc) [facility] NON HDL CHOLESTEROL 106 <130 mg/dL (calc) [facility] Comment: For patients with diabetes plus 1 major ASCVD risk factor, treating to a non-HDL-C goal of <100 mg/dL (LDL-C of <70 mg/dL) is considered a therapeutic option. 05/01/2024 8:05 AM POULTRY PACKER 05/03/2024 12:12 AM POULTRY PACKER Narrative Resulting Agency Comment Performing Organization Information: Site ID: [id number] Name: [facility] Address: [address] [place] [phone] Director: Shirlene Fregoso MD Olga Baker MD LABORATORY Final Result Performing Organization Address [facility] Co de Phone Number [employer] - [place] [facility] [employer] [facility] [id number] [place], [place] [address], [place] [id number], * HEPATITIS C ANTIBODY W/RFX TO HCV RNA (QUEST ONLY) (05/11/2020 7:35 AM POULTRY PACKER) HEPATITIS C AB NON-REACTI VE NON-REACT [facility] [facility] SIGNAL TO CUTOFF 0.01 <1.[address] [facility] Comment: HCV antibody was non-reactive. There is no laboratory evidence of HCV infection. In most cases, no further action is required. However, if recent HCV exposure is suspected, a test for HCV RNA (test code 08985) is suggested. For additional information please refer to http://education.GadgetATM/faq/XFK48p1 (This link is being provided for informational/ educational purposes only.) 05/11/2020 7:35 AM POULTRY PACKER 05/12/2020 3:46 AM POULTRY PACKER Rekha Helms MD LABORATORY Final Result Performing Organization Address [facility] Co de Phone Number [employer] - ALYSE ORDERS [facility] [address] [place] [address] * COLONOSCOPY (12/30/2019) us Documents Scanned SCANNING Final Result [facility] ONBASE from Last 3 Months or Most Recently Relevant to Health Maintenance Insurance ESSENCE Care Teams Production Control Analyst Relationship Specialty [place] [address] [address] [place] [address] PCP - General FAMILY PRACTICE 10/18/22
--- OUTSIDE RECORDS SUMMARY | 2025-02-05 07:57 | XMS_ITS | Encounter Summary ---
Author Organization [facility] Address [address] [place] [address] Care Team Providers Care Cook House Laborer Name Role Phone Olga Baker MD Primary Care Provider [phone] Encounter Details Date Type Department Care Team (Late st Contact Info) Description 10/24/2022 ECO Message Enc [facility] Family & Internal Medicine - N.Main [facility], [place] [address] [facility] Provider Diabetic Eye Exam Social History Tobacco Use Types Packs/Day Years Used Date Smoking Tobacco: Never Smokeless Tobacco: Never Alcohol Use Standard Drinks/Week Comments Yes 0 (1 standard drink = 0.6 oz pur e alcohol) socially PHQ-2 Answer Date Recorded PHQ-2 Score - If the patient scores above 3, please move on to questions 3-9 0 10/30/2021 Sex and Gender Information Value Date Recorded Sex Assigned at Male 08/03/2024 7:45 AM PROFESSIONAL FEE CODER Legal Sex Male 7:03 PM CDT Gender Identity Not on file Sexual Orientation Not on file COVID-19 Exposure Response Date Recorded In the last 10 days, have yo u been in contact with someone who was confirmed or suspected to have Coronavirus/COVID-19? No / Unsure 10/22/2022 7:44 AM CDT documented as of this encounter Plan of Treatment Upcoming Encounters Date Type Department Care Team (Late st Contact Info) Description 02/08/2025 9:45 AM CDT Appointment [facility] [address] [place] [address] [place] [address] [place] [address] Daniel Pennington, FLORENTINO [address] [place] [address] 05/21/2025 7:40 AM PROFESSIONAL FEE CODER Laboratory Only [facility] Family & Internal [facility] [address] [place] [address] 05/28/2025 7:40 AM PROFESSIONAL FEE CODER Office Visit [facility] & Internal [facility] [address] [place] [address] [place] [address] [facility]. [address] [place] [address] documented as of this encounter Visit Diagnoses Not on filedocumented in this encounter Additional Health Concerns Assessment Noted Time PHQ-9 Depression Total Score: 1 10/31/19 22 2:57 PM CDT documented as of this encounter Care Teams Cook House Laborer Relationship Specialty [place] [address] [facility]. [address] [place] [address] PCP - General FAMILY PRACTICE 10/18/22 documented as of this encounter
--- OUTSIDE RECORDS SUMMARY | 2025-02-05 07:57 | XMS_ITS | Encounter Summary ---
Author Organization [facility] Address [address] [place] [address] Care Team Providers Care Director Biomedical Engineering Name Role Phone Tony Huerta DO Primary Care Provider Unav ailable Encounter Details Date Type Department Care Team (Late st Contact Info) Description 10/16/2001 Outpatient Historical [facility] Primary Care [address] [phone] Tony Huerta DO NO ADDRESS ON FILE Social History Tobacco Use Types Packs/Day Years Used Date Smoking Tobacco: Never Assessed Sex and Gender Information Value Date Recorded Sex Assigned at Not on file Legal Sex Male 2:37 AM MINING HELPER Gender Identity Not on file Sexual Orientation Not on file documented as of this encounter Plan of Treatment Not on file documented as of this encounter Visit Diagnoses Not on filedocumented in this encounter Care Teams Director Biomedical Engineering Relationship Specialty Start Date End Date Tony Huerta DO NO ADDRESS ON FILE PCP - General 10/30/02 documented as of this encounter
--- OUTSIDE RECORDS SUMMARY | 2025-02-05 07:57 | XMS_ITS | Encounter Summary ---
Author Organization [facility] Address [address] [place] [address] Care Team Providers Care Senior Research Scientist Name Role Phone Olga Baker MD Primary Care Provider [phone] Encounter Details Date Type Department Care Team (Late Contact Info) Description 01/22/2025 Cell[employer]ire Message Enc [facility] Pre-[place]mission [place] [address] [facility] Provider SURGERY INSTRUCTIONS Social History Tobacco Use Types Packs/Day Years Used Date Smoking Tobacco: Never Smokeless Tobacco: Never Alcohol Use Standard Drinks/Week Comments Yes 0 (1 standard drink = 0.6 oz pure alcohol) Just a couple of beers per month. PHQ-2 Answer Date Recorded Patient Health Questionnaire-2 Score 0 08/03/2024 Sex and Gender Information Value Date Recorded Sex Assigned at Male 08/03/2024 7:45 AM FEDERAL APPELLATE LAW CLERK Legal Sex Male 7:03 PM CDT Gender Identity Not on file Sexual Orientation Not on file documented as of this encounter Plan of Treatment Upcoming Encounters Date Type Department Care Team (Late Contact Info) Description 02/08/2025 9:[address] [facility] [address] [place], [place] [id number] [place] [address] [place], [place] [id number] Daniel Pennington, SOLDERING INSPECTOR [address] [facility] [place] [address] 05/21/2025 7:40 AM FEDERAL APPELLATE LAW CLERK Laboratory Only [facility] Family & Internal Medicine [facility] [address] [place] [phone] 05/28/2025 7:40 AM FEDERAL APPELLATE LAW CLERK Office Visit [facility] Family & Internal [address] [address] [place] [address] [facility] Talisha. [address] [place] [address] documented as of this encounter Visit Diagnoses Not on filedocumented in this encounter Additional Health Concerns Assessment Noted Time PHQ-9 Depression Total Score: 1 10/31/19 22 2:57 PM CDT documented as of this encounter Care Teams Senior Research Scientist Relationship Specialty [place] [address] [address] [place] [address] PCP - General FAMILY PRACTICE 10/18/22 documented as of this encounter
--- OUTSIDE RECORDS SUMMARY | 2025-02-05 07:57 | XMS_ITS | Encounter Summary ---
Author Organization [facility] Address [address] [place] [address] Care Team Providers Care Grinding Machine Tender Name Role Phone Rekha Helms MD Primary Care Provider [phone] Olga Baker MD Primary Care Provider [phone] Encounter Details Date Type Department Care Team (Late Contact Info) Description 12/14/2019 Prep for Procedure [facility] [address] [place], [place] [id number] Devan Patricio MD [address] [address] Social History Tobacco Use Types [...] Sex Assigned at Male 08/03/2024 7:45 AM DIELECTRIC TESTER Legal Sex Male 7:03 PM CDT Gender Identity Not on file Sexual Orientation Not on file COVID-19 Exposure Response Date Recorded In the last month, have you been in contact with someone who was confirmed or suspected to have Coronavirus / COVID-19? No / Unsure 12/02/2019 1:56 PM CDT documented as of this encounter Plan of Treatment Upcoming Encounters Date Type Department Care Team (Late st Contact Info) Description 02/08/2025 9:[address] [facility] [address] [place], [place] [address] [place] [address] [place] [address] Daniel Pennington, FLORENTINO [address] [place] [address] 05/21/2025 7:40 AM DIELECTRIC TESTER Laboratory Only [facility] Internal [facility] [address] [place] [address] 05/28/2025 7:40 AM DIELECTRIC TESTER Office Visit [facility] [address] [place] [address] [place] [address] [facility]. [address] [place] [address] documented as of this encounter Results * PRE-SURGICAL/PRE-PROCEDURE CORONAVIRUS (COVID 19) (12/21/2019 12:25 PM CDT) CORONAVIRUS SARS COV 2 PCR (RESP) NOT DETECTED NOT DETECTED 12/22/2019 6:48 PM CDT [employer] [facility] Comment: A Not Detected (negative) test result for this test means that SARS- CoV-2 RNA was not present in the specimen above the limit of detection. A negative result does not rule out the possibility of COVID-19 and should not be used as the sole basis for treatment or patient management decisions. If COVID-19 is still suspected, based on exposure history together with other clinical findings, re-testing should be considered in consultation with public health authorities. Laboratory test results should always be considered in the context of clinical observations and epidemiological data in making a final diagnosis and patient management decisions. Please review the Fact Sheets and FDA authorized labeling available for health care providers and patients using the following websites: https://www.[employer].com/home/Covid-19/HCP/NAAT/fact-sheet2 https://www.[employer]/home/Covid-19/Patients/NAAT/ fact-sheet2 This test has been authorized by the FDA under an Emergency Use Authorization (EUA) for use by authorized laboratories. Due to the current public health emergency, [employer] is receiving a high volume of samples from a wide variety of swabs and media for COVID-19 testing. In order to serve patients during this public health crisis, samples from appropriate clinical sources are being tested. Negative test results derived from specimens received in non-commercially manufactured viral collection and transport media, or in media and sample collection kits not yet authorized by FDA for COVID-19 testing should be cautiously evaluated and the patient potentially subjected to extra precautions such as additional clinical monitoring, including collection of an additional specimen. Methodology: Nucleic Acid Amplification Test (NAAT) includes PCR or TMA Additional information about COVID-19 can be found at the [employer] website: www.[employer]/Covid19. Test performed at [facility] [address] [place] [phone] Director: LUIS TRACEY DO,MPH NASOPHARYNGEAL SWAB / Unknown 12/21/2019 12:25 PM CDT Devan Patricio MD MICROBIOLOGY - GENERAL ORDERABLE S Final Result [employer] [id number] [place] [address] documented in this encounter Visit Diagnoses Diagnosis Preop testing- Primary Preoperative examination, unspecified documented in this encounter Additional Health Concerns Infection Onset Date Last Indicated Resolved Time COVID-19 Rule Out 12/21/2019 12/21/2019 12/22/2019 6:49 PM CDT COVID-19 Rule Out 12/28/2019 12/28/2019 12/30/2019 12:28 AM CDT documented as of this encounter Care Teams Grinding Machine Tender Relationship Specialty Start Date End Date Rekha Helms MD PCP - General INTERNAL MEDICINE 12/09/19 10/17/22 [place] [address] [facility] Talisha. [address] [place] [address] PCP - General FAMILY PRACTICE 10/18/22 documented as of this encounter
--- OUTSIDE RECORDS SUMMARY | 2025-02-05 07:57 | XMS_ITS | Encounter Summary ---
Author Organization [facility] Address [address] [place] [address] Care Team Providers Care Supervisor Ovens Name Role Phone Olga Baker MD Primary Care Provider [phone] Encounter Details Date Type Department Care Team (Latest Contact Info) Description 02/04/2025 Travel Social History Tobacco Use Types Packs/Day Years Used Date Smoking Tobacco: Never Smokeless Tobacco: Never Alcohol Use Standard Drinks/Week Comments Yes 0 (1 standard drink = 0.6 oz pure alcohol) Just a couple of beers per month. PHQ-2 Answer Date Recorded Patient Health Questionnaire-2 Score 0 08/03/2024 Sex and Gender Information Value Date Recorded Sex Assigned at Male 08/03/2024 7:45 AM CIVIL TRANSPORTATION ENGINEER Legal Sex Male 7:03 PM CDT Gender Identity Not on file Sexual Orientation Not on file documented as of this encounter Plan of Treatment Upcoming Encounters Date Type Department Care Team (Late st Contact Info) Description 02/08/2025 9:45 AM CDT Appointment [facility] [address] [place] [address] [address] [place] [address] [place] [address] Daniel Pennington, FLORENTINO [address] [place] [address] 05/21/2025 7:40 AM CIVIL TRANSPORTATION ENGINEER Laboratory Only [facility] Family & Internal Medicine [facility] [address] [place] [address] 05/28/2025 7:40 AM CIVIL TRANSPORTATION ENGINEER Office Visit [facility] Family & Internal Medicine - [address] [address] [place] [address] [facility]. [address] [place] [address] documented as of this encounter Visit Diagnoses Not on filedocumented in this encounter Additional Health Concerns Assessment Noted Time PHQ-9 Depression Total Score: 1 10/31/19 22 2:57 PM CDT documented as of this encounter Care Teams Supervisor Ovens Relationship Specialty [place] [address] [facility]. [address] [place] [address] PCP - General FAMILY PRACTICE 10/18/22 documented as of this encounter
--- OUTSIDE RECORDS SUMMARY | 2025-02-05 07:57 | XMS_ITS | Encounter Summary ---
Author Organization [facility] Address [address] [place] [address] Care Team Providers Care Billet Inspector Name Role Phone Olga Baker MD Primary Care Provider [phone] Encounter Details Date Type Department Care Team (Late Contact Info) Description 01/17/2025 Results Follow-Up [facility] Family & Internal Medicine - [place] [address] [place] [address] [place] [address] [facility]. [address] [place] [address] TISSUE EXAM BY PATHOLOGIST (QUEST ONLY) Social History Tobacco Use Types Packs/Day Years Used Date Smoking Tobacco: Never Smokeless Tobacco: Never Alcohol Use Standard Drinks/Week Comments Yes 0 (1 standard drink = 0.6 oz pure alcohol) Just a couple of beers per month. PHQ-2 Answer Date Recorded Patient Health Questionnaire-2 Score 0 08/03/2024 Sex and Gender Information Value Date Recorded Sex Assigned at Male 08/03/2024 7:45 AM BINDER SELECTOR Legal Sex Male 7:03 PM CDT Gender Identity Not on file Sexual Orientation Not on file documented as of this encounter Plan of Treatment Upcoming Encounters Date Type Department Care Team (Late st Contact Info) Description 02/08/2025 9:45 AM CDT Appointment [facility] Therapy [address] [place] [address] [place] [address] [place] [address] Daniel Pennington, FLORENTINO [address] [place] [address] 05/21/2025 7:40 AM BINDER SELECTOR Laboratory Only [facility] Family & Internal Medicine [facility] [address] [place] [address] 05/28/2025 7:40 AM BINDER SELECTOR Office Visit [facility] Family & Internal [facility] [address] [place] [address] [place] [address] [facility] Talisha. [address] [place] [address] documented as of this encounter Visit Diagnoses Not on filedocumented in this encounter Additional Health Concerns Assessment Noted Time PHQ-9 Depression Total Score: 1 10/31/19 22 2:57 PM CDT documented as of this encounter Care Teams Billet Inspector Relationship Specialty [place] [address] [address] [place] [address] PCP - General FAMILY PRACTICE 10/18/22 documented as of this encounter
--- OUTSIDE RECORDS SUMMARY | 2025-02-05 07:57 | XMS_ITS | Encounter Summary ---
Author Organization [facility] Address [address] [place] [address] Care Team Providers Care Second Floor Operator Name Role Phone Tony Huerta DO Primary Care Provider Unav ailable Encounter Details Date Type Department Care Team (Late st Contact Info) Description 07/26/2003 Outpatient Historical [facility] Primary Care [address] [phone] Tony Huerta DO NO ADDRESS ON FILE Social History Tobacco Use Types Packs/Day Years Used Date Smoking Tobacco: Never Assessed Sex and Gender Information Value Date Recorded Sex Assigned at Not on file Legal Sex Male 2:37 AM PARKING ATTENDANT Gender Identity Not on file Sexual Orientation Not on file documented as of this encounter Plan of Treatment Not on file documented as of this encounter Visit Diagnoses Not on filedocumented in this encounter Care Teams Second Floor Operator Relationship Specialty Start Date End Date Tony Huerta DO NO ADDRESS ON FILE PCP - General 10/30/02 documented as of this encounter
--- OUTSIDE RECORDS SUMMARY | 2025-02-05 07:57 | XMS_ITS | Encounter Summary ---
Author Organization [facility] Address [address] [place] [address] Care Team Providers Care Tram Operator Name Role Phone Olga Baker MD Primary Care Provider Encounter Details Date Type Department Care Team (Late st Contact Info) Description 05/25/2024 [facility] [employer] Message Enc [facility] Family & Internal Medicine [facility] [address] [place] [address] [place] [address] [facility]. [address] [place] [address] X-ray of wrist Social History Tobacco Use Types Packs/Day Years Used Date Smoking Tobacco: Never Smokeless Tobacco: Never Alcohol Use Standard Drinks/Week Comments Yes 0 (1 standard drink = 0.6 oz pure alcohol) Just a couple of beers per month. PHQ-2 Answer Date Recorded Patient Health Questionnaire-2 Score 1 10/30/2023 Sex and Gender Information Value Date Recorded Sex Assigned at Male 08/03/2024 7:45 AM ELECTRICAL SYSTEMS DRAFTER Legal Sex Male 7:03 PM CDT Gender Identity Not on file Sexual Orientation Not on file documented as of this encounter Plan of Treatment Upcoming Encounters Date Type Department Care Team (Late st Contact Info) Description 02/08/2025 9:45 AM CDT Appointment [facility] Occupational Therapy [address] [place] [address] [place] [address] [place] [address] Daniel Pennington, FLORENTINO [address] [place] [address] 05/21/2025 7:40 AM ELECTRICAL SYSTEMS DRAFTER Laboratory Only [facility] Family & Internal [facility] [address] [place] [address] 05/28/2025 7:40 AM ELECTRICAL SYSTEMS DRAFTER Office Visit [facility] Family & Internal [facility] [address] [place] [address] [place] [address] [facility] Talisha. [address] [place] [address] documented as of this encounter Visit Diagnoses Not on filedocumented in this encounter Additional Health Concerns Assessment Noted Time PHQ-9 Depression Total Score: 1 10/31/19 22 2:57 PM CDT documented as of this encounter Care Teams Tram Operator Relationship Specialty [place] [address] [address] [place] [address] PCP - General FAMILY PRACTICE 10/18/22 documented as of this encounter
[2025-02-05 08:17] LABS: Hematocrit 40.2 % (42.0-52.0); Hemoglobin 12.4 g/dL (14.0-18.0)
== END 2025-02-05 07:49 | disposition home or self-care (01) ==
LOC: ANHSURGERY 07:54
PROVIDERS: Anesthesiology; PCP Family Medicine; Visit Provider Urology
DX: E78.5 Hyperlipidemia, unspecified (principal); I10 Essential (primary) hypertension; D64.9 Anemia, unspecified
CPT/HCPCS: 36415; 85014; 85018; 93005

== ENCOUNTER 2025-02-11 02:20 | Day surgery (SDC) | payer OTHER, SELFPAY ==
[2025-02-04 09:52] VITALS: BMI 23.1
--- NOTE | 2025-02-04 10:06 | PC.NURSE ---
Report to the Outpatient Waiting Room, entrance under the green pavilion located off [facility], at time ___06:30am____ on date __02/11/25 . Planned Procedure Time: __08:30am .? Time changes happen often and if your time is changed the preop area will call you the afternoon before. - You and your visitor will be asked to self-screen and do not enter if you have any COVID symptoms. Please call surgeon if you need to reschedule. - A mask is optional within the hospital at this time. Patients may have clear liquids (water, carbonated beverages, clear teas, apple juice) until 3 hours prior to surgery with a maximum of 20 ounces. - No food from midnight until time of surgery and no smoking, or chewing tobacco (or any form of nicotine). No chewing gum, candy or mints. (0530am) Take only the following medications with a SIP of water on the morning of surgery: NONE DO NOT STOP ANY OF YOUR OTHER PRESCRIPTION MEDICATIONS PRIOR TO SURGERY EXCEPT THE FOLLOWING Hold all vitamins and supplements for [address] Vernon. Date of last dose is 02/02/25 Medications to discontinue per physician NONE Date to take last dose NONE Please no make-up, nail tajik, hairspray, perfume, deodorant, or body powder the day of surgery.? No jewelry (including any body piercings) or valuables the day of surgery, leave them at home.? Please take a shower or bath the night before, or the morning of, surgery with an antibacterial soap.?( GOLD DIAL ) Wear comfortable, loose fitting clothing.? - Jewelry must be removed prior to entering the operating room.? Rings and piercings that are not removed may be cut off. - The hospital will not accept responsibility for valuables.? - Please leave all valuables, including medications, at home the day of surgery. If you are going home after surgery, a licensed patient transportation driver must drive you home.? - NO public transportation without another adult if you receive anesthesia. - We recommend that an adult stay with you for 24 hours following discharge. - We also recommend that you do not drive, make important decision, drink alcoholic beverages, or take any drugs that were not prescribed by your health care provider for at least 24 hours after your discharge time. Follow any additional instructions given to you from your surgeon. Telephone instructions given to __Patient and asked if any additional questions and then verbalized understanding. Patient advised to call surgeon office or pre surgery nurse liaison [phone] if any additional questions.
[2025-02-11] VITALS (11 sets, daily range): BP systolic 104–128; BP diastolic 59–81; PULSE 44–60; RESP 12–16; TEMP 35.5–36.6; O2SAT 95–99; BMI 23.1
--- OUTSIDE RECORDS SUMMARY | 2025-02-11 02:22 | XMS_ITS | Encounter Summary ---
Author Organization [facility] Address [address] [place] [address] Care Team Providers Care Therapeutic Case Manager Name Role Phone Tony Huerta DO Primary Care Provider Unav ailable Encounter Details Date Type Department Care Team (Late st Contact Info) Description 03/30/2003 Outpatient Historical [facility] Primary Care [address] [phone] Nery Cueto MD NO ADDRESS ON FILE Social History Tobacco Use Types Packs/Day Years Used Date Smoking Tobacco: Never Assessed Sex and Gender Information Value Date Recorded Sex Assigned at Not on file Legal Sex Male 2:37 AM ASSESSMENT MANAGER Gender Identity Not on file Sexual Orientation Not on file documented as of this encounter Plan of Treatment Not on file documented as of this encounter Visit Diagnoses Not on filedocumented in this encounter Care Teams Therapeutic Case Manager Relationship Specialty Start Date End Date Tony Huerta DO NO ADDRESS ON FILE PCP - General 10/30/02 documented as of this encounter
--- OUTSIDE RECORDS SUMMARY | 2025-02-11 02:22 | XMS_ITS | Encounter Summary ---
Author Organization [facility] Address [address] [place] [address] Care Team Providers Care Chin Strap Cutter Name Role Phone Tony Huerta DO Primary Care Provider Unav ailable Encounter Details Date Type Department Care Team (Late st Contact Info) Description 07/09/2002 Outpatient Historical [facility] Primary Care [address] [phone] Tony Huerta DO NO ADDRESS ON FILE Social History Tobacco Use Types Packs/Day Years Used Date Smoking Tobacco: Never Assessed Sex and Gender Information Value Date Recorded Sex Assigned at Not on file Legal Sex Male 2:37 AM ROTATING EQUIPMENT SPECIALIST Gender Identity Not on file Sexual Orientation Not on file documented as of this encounter Plan of Treatment Not on file documented as of this encounter Visit Diagnoses Not on filedocumented in this encounter Care Teams Chin Strap Cutter Relationship Specialty Start Date End Date Tony Huerta DO NO ADDRESS ON FILE PCP - General 10/30/02 documented as of this encounter
--- OUTSIDE RECORDS SUMMARY | 2025-02-11 02:22 | XMS_ITS | Encounter Summary ---
Author Organization [facility] Address [address] [place] [address] Care Team Providers Care Mill Dresser Name Role Phone Tony Huerta DO Primary Care Provider Unav ailable Encounter Details Date Type Department Care Team (Late st Contact Info) Description 01/17/2004 Outpatient Historical [facility] Primary Care [address] [phone] Tony Huerta DO NO ADDRESS ON FILE Social History Tobacco Use Types Packs/Day Years Used Date Smoking Tobacco: Never Assessed Sex and Gender Information Value Date Recorded Sex Assigned at Not on file Legal Sex Male 2:37 AM ASSISTANT PRODUCER Gender Identity Not on file Sexual Orientation Not on file documented as of this encounter Plan of Treatment Not on file documented as of this encounter Visit Diagnoses Not on filedocumented in this encounter Care Teams Mill Dresser Relationship Specialty Start Date End Date Tony Huerta DO NO ADDRESS ON FILE PCP - General 10/30/02 documented as of this encounter
--- OUTSIDE RECORDS SUMMARY | 2025-02-11 02:22 | XMS_ITS | Encounter Summary ---
Author Organization [facility] Address [address] [place] [address] Care Team Providers Care Product Architect Name Role Phone Tony Huerta DO Primary Care Provider Unav ailable Encounter Details Date Type Department Care Team (Late st Contact Info) Description 01/15/2002 Outpatient Historical [facility] Primary Care [address] [phone] Tony Huerta DO NO ADDRESS ON FILE Social History Tobacco Use Types Packs/Day Years Used Date Smoking Tobacco: Never Assessed Sex and Gender Information Value Date Recorded Sex Assigned at Not on file Legal Sex Male 2:37 AM PINION SORTER Gender Identity Not on file Sexual Orientation Not on file documented as of this encounter Plan of Treatment Not on file documented as of this encounter Visit Diagnoses Not on filedocumented in this encounter Care Teams Product Architect Relationship Specialty Start Date End Date Tony Huerta DO NO ADDRESS ON FILE PCP - General 10/30/02 documented as of this encounter
--- OUTSIDE RECORDS SUMMARY | 2025-02-11 02:22 | XMS_ITS | Encounter Summary ---
Author Organization [facility] Address [address] [place] [address] Care Team Providers Care Baby Formula Mixer Name Role Phone Tony Huerta DO Primary Care Provider Unav ailable Encounter Details Date Type Department Care Team (Late st Contact Info) Description 12/24/2002 Outpatient Historical [facility] Primary Care [address] [phone] Tony Huerta DO NO ADDRESS ON FILE Social History Tobacco Use Types Packs/Day Years Used Date Smoking Tobacco: Never Assessed Sex and Gender Information Value Date Recorded Sex Assigned at Not on file Legal Sex Male 2:37 AM DIABETES TERRITORY MANAGER Gender Identity Not on file Sexual Orientation Not on file documented as of this encounter Plan of Treatment Not on file documented as of this encounter Visit Diagnoses Not on filedocumented in this encounter Care Teams Baby Formula Mixer Relationship Specialty Start Date End Date Tony Huerta DO NO ADDRESS ON FILE PCP - General 10/30/02 documented as of this encounter
--- OUTSIDE RECORDS SUMMARY | 2025-02-11 02:22 | XMS_ITS | Encounter Summary ---
Author Organization [facility] Address [address] [place] [address] Care Team Providers Care Web Developer Programmer Name Role Phone Tony Huerta DO Primary Care Provider Unav ailable Encounter Details Date Type Department Care Team (Late st Contact Info) Description 04/30/2003 Outpatient Historical [facility] Primary Care [address] [phone] Tony Huerta DO NO ADDRESS ON FILE Social History Tobacco Use Types Packs/Day Years Used Date Smoking Tobacco: Never Assessed Sex and Gender Information Value Date Recorded Sex Assigned at Not on file Legal Sex Male 2:37 AM SHIPPING AND RECEIVING MATERIAL HANDLER Gender Identity Not on file Sexual Orientation Not on file documented as of this encounter Plan of Treatment Not on file documented as of this encounter Visit Diagnoses Not on filedocumented in this encounter Care Teams Web Developer Programmer Relationship Specialty Start Date End Date Tony Huerta DO NO ADDRESS ON FILE PCP - General 10/30/02 documented as of this encounter
--- OUTSIDE RECORDS SUMMARY | 2025-02-11 02:22 | XMS_ITS | Encounter Summary ---
Author Organization [facility] Address [address] [place] [address] Care Team Providers Care Tours Hostess Name Role Phone Tony Huerta DO Primary Care Provider Unav ailable Encounter Details Date Type Department Care Team (Late st Contact Info) Description 03/08/[address] 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
--- OUTSIDE RECORDS SUMMARY | 2025-02-11 02:22 | XMS_ITS | Encounter Summary ---
Author Organization [facility] Address [address] [place] [address] Care Team Providers Care Nurse School Name Role Phone Olga Baker MD Primary Care Provider [phone] Encounter Details Date Type Department Care Team (Late st Contact Info) Description 10/24/2022 [employer] Message Enc [facility] Family & Internal Medicine - [facility], [place] [address] [facility] Provider Diabetic Eye Exam Social History Tobacco [...] Sex Assigned at Male 08/03/2024 7:45 AM DISTRIBUTION ENGINEER Legal Sex Male 7:03 PM CDT [...] Care Team (Late st Contact Info) Description 03/04/2025 10:15 AM CDT Appointment [facility] [address] [place] [address] Ciara [place] [address] [facility] [place] [address] [place] [address] [facility] [address] [place] [address] 05/21/2025 7:40 AM DISTRIBUTION ENGINEER Laboratory Only [facility] Family & Internal [facility] [address] [place] [address] 05/28/2025 7:40 AM DISTRIBUTION ENGINEER Office Visit [facility] Family & Internal [facility] [address] [place] [address] [place] [address] [facility]. [address] [address] documented as of this encounter Visit Diagnoses Not on filedocumented in this encounter Additional Health Concerns Assessment Noted Time PHQ-9 Depression Total Score: 1 10/31/19 22 2:57 PM CDT documented as of this encounter Care Teams Nurse School Relationship Specialty [place] [address] [facility] [address] [place] [address] PCP - General FAMILY PRACTICE 10/18/22 documented as of this encounter
--- OUTSIDE RECORDS SUMMARY | 2025-02-11 02:22 | XMS_ITS | Encounter Summary ---
Author Organization [facility] Address 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
--- OUTSIDE RECORDS SUMMARY | 2025-02-11 02:22 | XMS_ITS | Encounter Summary ---
Author Organization [facility] Address 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
--- OUTSIDE RECORDS SUMMARY | 2025-02-11 02:22 | XMS_ITS | Encounter Summary ---
Author Organization [facility] Address [address] [place] [address] Care Team Providers Care Upper Shaper Name Role Phone Tony Huerta DO Primary Care Provider Unav ailable Encounter Details Date Type Department Care Team (Late st Contact Info) Description 10/30/2002 Outpatient Historical [facility] Gopi Altamirano MD [address] [place] [address] [place] [address] SCREENING MAL NEOP-COLON (Primary Dx) Social History Tobacco Use Types Packs/Day Years Used Date Smoking Tobacco: Never Assessed Sex and Gender Information Value Date Recorded Sex Assigned at Not on file Legal Sex Male 2:37 AM CLIENT FINANCE ANALYST Gender Identity Not on file Sexual Orientation Not on file documented as of this encounter Plan of Treatment Not on file documented as of this encounter Visit Diagnoses Diagnosis Special screening for malignant neoplasms, colon- Primary documented in this encounter Care Teams Upper Shaper Relationship Specialty Start Date End Date Tony Huerta DO NO ADDRESS ON FILE PCP - General 10/30/02 documented as of this encounter
--- OUTSIDE RECORDS SUMMARY | 2025-02-11 02:22 | XMS_ITS | Encounter Summary ---
Author Organization [facility] Address 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
--- OUTSIDE RECORDS SUMMARY | 2025-02-11 02:22 | XMS_ITS | Encounter Summary ---
Author Organization [facility] Address 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
--- OUTSIDE RECORDS SUMMARY | 2025-02-11 02:22 | XMS_ITS | Clinical Summary ---
Author Organization [facility] Address [address] [facility] [address] [address] [facility] [address] [address] 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
--- OUTSIDE RECORDS SUMMARY | 2025-02-11 02:22 | XMS_ITS | Encounter Summary ---
Author Organization [facility] Address [address] [place] [address] Care Team Providers Care Ammunition Assembly I Laborer Name Role Phone Tony Huerta DO Primary Care Provider Unav ailable Encounter Details Date Type Department Care Team (Late st Contact Info) Description 07/26/2003 Outpatient Historical [facility] Primary Care [address] [phone] Tony Huerta DO NO ADDRESS ON FILE Social History Tobacco Use Types Packs/Day Years Used Date Smoking Tobacco: Never Assessed Sex and Gender Information Value Date Recorded Sex Assigned at Not on file Legal Sex Male 2:37 AM PROCESSING REP Gender Identity Not on file Sexual Orientation Not on file documented as of this encounter Plan of Treatment Not on file documented as of this encounter Visit Diagnoses Not on filedocumented in this encounter Care Teams Ammunition Assembly I Laborer Relationship Specialty Start Date End Date Tony Huerta DO NO ADDRESS ON FILE PCP - General 10/30/02 documented as of this encounter
--- OUTSIDE RECORDS SUMMARY | 2025-02-11 02:22 | XMS_ITS | Encounter Summary ---
Author Organization [facility] Address [address] [place] [address] Care Team Providers Care Shipping And Receiving Clerk Name Role Phone Tony Huerta DO Primary Care Provider Unav ailable Encounter Details Date Type Department Care Team (Late st Contact Info) Description 05/31/2003 Outpatient Historical [facility] Primary Care [address] [phone] Tony Huerta DO NO ADDRESS ON FILE Social History Tobacco Use Types Packs/Day Years Used Date Smoking Tobacco: Never Assessed Sex and Gender Information Value Date Recorded Sex Assigned at Not on file Legal Sex Male 2:37 AM EYELETTER Gender Identity Not on file Sexual Orientation Not on file documented as of this encounter Plan of Treatment Not on file documented as of this encounter Visit Diagnoses Not on filedocumented in this encounter Care Teams Shipping And Receiving Clerk Relationship Specialty Start Date End Date Tony Huerta DO NO ADDRESS ON FILE PCP - General 10/30/02 documented as of this encounter
--- OUTSIDE RECORDS SUMMARY | 2025-02-11 02:22 | XMS_ITS | Encounter Summary ---
Author Organization [facility] Address 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
--- OUTSIDE RECORDS SUMMARY | 2025-02-11 02:22 | XMS_ITS | Encounter Summary ---
Author Organization [facility] Address [address] [place] [address] Care Team Providers Care Manufacturing Shift Supervisor Name Role Phone Tony Huerta DO Primary Care Provider Unav ailable Encounter Details Date Type Department Care Team (Late st Contact Info) Description 10/01/2002 Outpatient Historical [facility] Primary Care [address] [phone] Tony uHerta DO NO ADDRESS ON FILE Social History Tobacco Use Types Packs/Day Years Used Date Smoking Tobacco: Never Assessed Sex and Gender Information Value Date Recorded Sex Assigned at Not on file Legal Sex Male 2:37 AM CONTINUOUS IMPROVEMENT ENGINEER Gender Identity Not on file Sexual Orientation Not on file documented as of this encounter Plan of Treatment Not on file documented as of this encounter Visit Diagnoses Not on filedocumented in this encounter Care Teams Manufacturing Shift Supervisor Relationship Specialty Start Date End Date Tony Huerta DO NO ADDRESS ON FILE PCP - General 10/30/02 documented as of this encounter
--- OUTSIDE RECORDS SUMMARY | 2025-02-11 02:22 | XMS_ITS | Encounter Summary ---
Author Organization [facility] Address [address] [place] [address] Care Team Providers Care Developer Evangelist Name Role Phone Tony Huerta DO Primary Care Provider Unav ailable Encounter Details Date Type Department Care Team (Latest Contact Info) Description 04/02/2003 Outpatient Historical [facility] Tony Huerta DO NO ADDRESS ON FILE HEADACHE (Primary Dx) Social History Tobacco Use Types Packs/Day Years Used Date Smoking Tobacco: Never Assessed Sex and Gender Information Value Date Recorded Sex Assigned at Not on file Legal Sex Male 2:37 AM PHONE REPRESENTATIVE Gender Identity Not on file Sexual Orientation Not on file documented as of this encounter Plan of Treatment Not on file documented as of this encounter Visit Diagnoses Diagnosis Headache(784.0)- Primary Headache documented in this encounter Care Teams Developer Evangelist Relationship Specialty Start Date End Date Tony Huerta DO NO ADDRESS ON FILE PCP - General 10/30/02 documented as of this encounter
--- OUTSIDE RECORDS SUMMARY | 2025-02-11 02:23 | XMS_ITS | Encounter Summary ---
Author Organization [facility] Address [address] [place] [address] Care Team Providers Care Truck Rental Manager Name Role Phone Olga Baker MD Primary Care Provider [phone] Encounter Details Date Type Department Care Team (Late st Contact Info) Description 09/01/2024 [employer] Message Enc [facility] Family & Internal Medicine [facility] [id number] [place] [address] Ol[place] Baker [place] [id number] [place] [address]. [address] [place] [address] Celecoxib Social History Tobacco Use [...] Sex Assigned at Male 08/03/2024 7:45 AM LEAD PERFORMANCE SUPPORT ANALYST Legal Sex Male 7:03 PM CDT Gender Identity Not on file Sexual Orientation Not on file documented as of this encounter Progress Notes * Alesia Holman MA - 09/02/2024 8:37 AM CDT See patients Mebelramahart message documented in this encounter Plan of Treatment Upcoming Encounters Date Type Department Care Team (Late st Contact Info) Description 03/04/2025 10:15 AM CDT Appointment [facility] [address] [place] [address] [place]ara [place] [address] [place] [address] [place] [address] [facility] [address] [place] [id number] 05/21/2025 7:40 AM LEAD PERFORMANCE SUPPORT ANALYST Laboratory Only [facility] Family & Internal [address] [address] 05/28/2025 7:40 AM LEAD PERFORMANCE SUPPORT ANALYST Office Visit [facility] & Internal [address] [address] [place] [address] [facility] [address] [place] [address] documented as of this encounter Visit Diagnoses Not on filedocumented in this encounter Additional Health Concerns Assessment Noted Time PHQ-9 Depression Total Score: 1 10/31/19 22 2:57 PM CDT documented as of this encounter Care Teams Truck Rental Manager Relationship Specialty [place] [address] [facility] [address] [place] [address] PCP - General FAMILY PRACTICE 10/18/22 documented as of this encounter
--- OUTSIDE RECORDS SUMMARY | 2025-02-11 02:23 | XMS_ITS | Encounter Summary ---
Author Organization [facility] Address [address] [place] [address] Care Team Providers Care Bruise Trimmer Name Role Phone Olga Baker MD Primary Care Provider [phone] Encounter Details Date Type Department Care Team (Late Contact Info) Description 11/26/2023 [employer] Message Enc [facility] Medical Group Family & Internal Medicine [facility] [address] [place] [address] [facility] Provider concern Social History Tobacco Use Types Packs/Day Years Used Date Smoking Tobacco: Never Smokeless Tobacco: Never Alcohol Use Standard Drinks/Week Comments Yes 0 (1 standard drink = 0.6 oz pure alcohol) Just a couple of beers per month. PHQ-2 Answer Date Recorded Patient Health Questionnaire-2 Score 1 10/30/2023 Sex and Gender Information Value Date Recorded Sex Assigned at Male 08/03/2024 7:45 AM INDUSTRIAL ECONOMICS TEACHER Legal Sex Male 7:03 PM CDT Gender Identity Not on file Sexual Orientation Not on file documented as of this encounter Plan of Treatment Upcoming Encounters Date Type Department Care Team (Late st Contact Info) Description 03/04/2025 10:[address] [facility] [address] [place], [place] [id number] Ciara Gó[place] [address] [place], [place] [id number] [place] [address] [facility]. [address] [place] [address] 05/21/2025 7:40 AM INDUSTRIAL ECONOMICS TEACHER Laboratory Only [facility] Family & Internal Medicine [facility] [address] [place] [address] 05/28/2025 7:40 AM INDUSTRIAL ECONOMICS TEACHER Office Visit [facility] Family & Internal [address] [address] [place] [address] [facility] [employer]. [address] [place] [address] documented as of this encounter Visit Diagnoses Not on filedocumented in this encounter Additional Health Concerns Assessment Noted Time PHQ-9 Depression Total Score: 1 10/31/19 22 2:57 PM CDT documented as of this encounter Care Teams Bruise Trimmer Relationship Specialty [place] [address] [address] [place] [address] PCP - General FAMILY PRACTICE 10/18/22 documented as of this encounter
--- OUTSIDE RECORDS SUMMARY | 2025-02-11 02:23 | XMS_ITS | Encounter Summary ---
Author Organization [facility] Address [address] [place] [address] Care Team Providers Care Ethanol Quality Leader Name Role Phone Rekha Helms MD Primary Care Provider [phone] Olga Baker MD Primary Care Provider [phone] Encounter Details Date Type Department Care Team (Late Contact Info) Description 12/14/2019 Prep for Procedure [facility] One Day Services [address] [place], [place] [id number] Devan Patricio MD [address] [address] Social History Tobacco Use Types [...] Sex Assigned at Male 08/03/2024 7:45 AM JAVA SUPPORT ENGINEER Legal Sex Male 7:03 PM CDT [...] Description 03/04/2025 10:[address] [facility] [address] [place], [place] [id number] [place] [address] [facility] [place] [address] [place] [address] [facility]. [address] [place] [id number] 05/21/2025 7:40 AM JAVA SUPPORT ENGINEER Laboratory Only [facility] & Internal [facility] [address] [place] [address] 05/28/2025 7:40 AM JAVA SUPPORT ENGINEER Office Visit [facility] [address] [place] [address] [place] [address] [facility] [phone] documented as of this encounter Results * PRE-SURGICAL/PRE-PROCEDURE CORONAVIRUS (COVID 19) (12/21/2019 12:25 PM CDT) CORONAVIRUS SARS COV 2 PCR (RESP) NOT DETECTED NOT DETECTED 12/22/2019 6:48 PM CDT [facility] Comment: A Not Detected (negative) test [...] providers and patients using the following websites: https://www.[employer].com/home/Covid-19/HCP/NAAT/fact-sheet2 https://www.[employer].Timeful/home/Covid-19/Patients/NAAT/ fact-sheet2 This test has been authorized by the FDA under an Emergency Use Authorization (EUA) for use by authorized laboratories. Due to the current public health emergency, [facility] is receiving a high volume of samples [...] about COVID-19 can be found at the [facility] website: www.[employer]/Covid19. Test performed at [facility] [address] [place] [address] Director: LUIS TRACEY DO,MPH NASOPHARYNGEAL SWAB / Unknown 12/21/2019 12:25 PM CDT Devan Patricio MD MICROBIOLOGY - GENERAL ORDERABLE S Final Result Performing Organization Address City/State/[facility] Co de Phone Number [facility] [id number] [place] [address] documented in this encounter Visit Diagnoses Diagnosis Preop testing- Primary Preoperative examination, unspecified documented in this encounter Additional Health Concerns Infection Onset Date Last Indicated Resolved Time COVID-19 Rule Out 12/21/2019 12/21/2019 12/22/2019 6:49 PM CDT COVID-19 Rule Out 12/28/2019 12/28/2019 12/30/2019 12:28 AM CDT documented as of this encounter Care Teams Ethanol Quality Leader Relationship Specialty Start Date End Date Rekha Helms MD PCP - General INTERNAL MEDICINE 12/09/19 10/17/22 [place] [address] [facility] [address] [place] [address] PCP - General FAMILY PRACTICE 10/18/22 documented as of this encounter
--- OUTSIDE RECORDS SUMMARY | 2025-02-11 02:23 | XMS_ITS | Encounter Summary ---
Author Organization [facility] Address [address] [place] [address] Care Team Providers Care Bookbinding Machine Operator Name Role Phone Olga Baker MD Primary Care Provider [phone] Encounter Details Date Type Department Care Team (Late Contact Info) Description 01/22/2025 People Pattern Message Enc [facility] Pre-Admission [place] [address] [facility] Provider SURGERY INSTRUCTIONS Social History Tobacco Use [...] Sex Assigned at Male 08/03/2024 7:45 AM GRANTS SPECIALIST Legal Sex Male 7:03 PM CDT Gender Identity Not on file Sexual Orientation Not on file documented as of this encounter Plan of Treatment Upcoming Encounters Date Type Department Care Team (Late Contact Info) Description 03/04/2025 10:[address] [facility] [address] [place], [place] [phone] [place] Gó[place] [address] [place], [place] [phone] [place] [address] [place] [address] 05/21/2025 7:40 AM GRANTS SPECIALIST Laboratory Only [facility] Family & Internal [place] [id number] [place] [address] 05/28/2025 7:40 AM GRANTS SPECIALIST Office Visit [facility] Family & Internal [address] [address] [place] [address] [facility] [address] [place] [address] documented as of this encounter Visit Diagnoses Not on filedocumented in this encounter Additional Health Concerns Assessment Noted Time PHQ-9 Depression Total Score: 1 10/31/19 22 2:57 PM CDT documented as of this encounter Care Teams Bookbinding Machine Operator Relationship Specialty [place] [address] [address] [place] [address] PCP - General FAMILY PRACTICE 10/18/22 documented as of this encounter
--- OUTSIDE RECORDS SUMMARY | 2025-02-11 02:23 | XMS_ITS | Encounter Summary ---
Author Organization [facility] Address [address] [place] [address] Care Team Providers Care Clerk Guide Name Role Phone Tony Huerta DO Primary Care Provider Unav ailable Encounter Details Date Type Department Care Team (Late st Contact Info) Description 10/16/2001 Outpatient Historical [facility] [address] [phone] Tony Huerta DO NO ADDRESS ON FILE Social History Tobacco Use Types Packs/Day Years Used Date Smoking Tobacco: Never Assessed Sex and Gender Information Value Date Recorded Sex Assigned at Not on file Legal Sex Male 2:37 AM SENIOR TELECOMMUNICATIONS TECHNICIAN Gender Identity Not on file Sexual Orientation Not on file documented as of this encounter Plan of Treatment Not on file documented as of this encounter Visit Diagnoses Not on filedocumented in this encounter Care Teams Clerk Guide Relationship Specialty Start Date End Date Tony Huerta DO NO ADDRESS ON FILE PCP - General 10/30/02 documented as of this encounter
--- OUTSIDE RECORDS SUMMARY | 2025-02-11 02:23 | XMS_ITS | Encounter Summary ---
Author Organization [facility] Address [address] [place] [address] Care Team Providers Care Laborer Shellfish Processing Name Role Phone Olga Baker MD Primary Care Provider [phone] Encounter Details Date Type Department Care Team (Late Contact Info) Description 01/17/2025 Results Follow-Up [facility] & Internal Medicine - [place] [address] [place] [address] [place] [address] [facility]. [address] [place] [address] TISSUE EXAM BY PATHOLOGIST (QUEST [...] Sex Assigned at Male 08/03/2024 7:45 AM CHIEF OF HOSPITAL MEDICINE Legal Sex Male 7:03 PM CDT Gender Identity Not on file Sexual Orientation Not on file documented as of this encounter Plan of Treatment Upcoming Encounters Date Type Department Care Team (Late st Contact Info) Description 03/04/2025 10:15 AM CDT Appointment [facility] [address] [place] [address] [place] [address] [place] [address] [place] [address] [address] [place] [address] 05/21/2025 7:40 AM CHIEF OF HOSPITAL MEDICINE Laboratory Only [facility] Family & Internal Medicine [facility] [address] [place] [address] 05/28/2025 7:40 AM CHIEF OF HOSPITAL MEDICINE Office Visit [facility] Family & Internal [facility] [address] [place] [address] [place] [address] [address] [place] [address] documented as of this encounter Visit Diagnoses Not on filedocumented in this encounter Additional Health Concerns Assessment Noted Time PHQ-9 Depression Total Score: 1 10/31/19 22 2:57 PM CDT documented as of this encounter Care Teams Laborer Shellfish Processing Relationship Specialty [place] [address] [address] [place] [address] PCP - General FAMILY PRACTICE 10/18/22 documented as of this encounter
--- OUTSIDE RECORDS SUMMARY | 2025-02-11 02:23 | XMS_ITS | Encounter Summary ---
Author Organization [facility] Address [address] [place] [address] Care Team Providers Care Tile Layer Name Role Phone Olga Baker MD Primary Care Provider [phone] Encounter Details Date Type Department Care Team (Late st Contact Info) Description 05/25/2024 [employer] Lightinghart Message Enc [facility] Family & Internal Medicine [facility] [address] [place] [address] [place] [address] [facility]. [address] [place] [address] X-ray of wrist Social History [...] Sex Assigned at Male 08/03/2024 7:45 AM TIMBER CRUISER Legal Sex Male 7:03 PM CDT Gender Identity Not on file Sexual Orientation Not on file documented as of this encounter Plan of Treatment Upcoming Encounters Date Type Department Care Team (Late st Contact Info) Description 03/04/2025 10:15 AM CDT Appointment [facility] [address] [place] [address] [place] [address] [place] [address] [place] [address] [address] [place] [address] 05/21/2025 7:40 AM TIMBER CRUISER Laboratory Only [facility] Family & Internal Medicine [facility] [address] [place] [address] 05/28/2025 7:40 AM TIMBER CRUISER Office Visit [facility] Family & Internal Medicine [facility] [address] [place] [address] [place] [address] [address] [place] [address] documented as of this encounter Visit Diagnoses Not on filedocumented in this encounter Additional Health Concerns Assessment Noted Time PHQ-9 Depression Total Score: 1 10/31/19 22 2:57 PM CDT documented as of this encounter Care Teams Tile Layer Relationship Specialty [place] [address] [address] [place] [address] PCP - General FAMILY PRACTICE 10/18/22 documented as of this encounter
--- OUTSIDE RECORDS SUMMARY | 2025-02-11 02:23 | XMS_ITS | Encounter Summary ---
Author Organization [facility] Address [address] [place] [address] Care Team Providers Care Martial Arts Instructor Name Role Phone Rekha Helms MD Primary Care Provider [phone] Olga Baker MD Primary Care Provider [phone] Encounter Details Date Type Department Care Team (Late Contact Info) Description 12/28/2019 Prep for Procedure [facility] One Day Services [address] [place], [place] [phone] Devan Patricio MD [address] [address] Social History Tobacco Use Types [...] Sex Assigned at Male 08/03/2024 7:45 AM LIME VAT TENDER Legal Sex Male 7:03 PM CDT Gender [...] Info) Description 03/04/2025 10:15 AM CDT Appointment [facility] [address] [place] [address] Ciara Gó[place] [address] [facility] [place] [address] [place] [address] [facility]. [address] [place] [phone] 05/21/2025 7:40 AM LIME VAT TENDER Laboratory Only [facility] Family & Internal [facility] [address] [place] [address] 05/28/2025 7:40 AM LIME VAT TENDER Office Visit [facility] Family & Internal [facility] [address] [place] [address] [place] [address] [address] [place] [phone] documented as of this encounter Visit Diagnoses Not on filedocumented in this encounter Additional Health Concerns Infection Onset Date Last Indicated Resolved Time COVID-19 Rule Out 12/28/2019 12/28/2019 12/30/2019 12:28 AM CDT documented as of this encounter Care Teams Martial Arts Instructor Relationship Specialty Start Date End Date Rekha Helms MD PCP - General INTERNAL MEDICINE 12/09/19 10/17/22 [place] [address] [place] [id number] PCP - General FAMILY PRACTICE 10/18/22 documented as of this encounter
--- OUTSIDE RECORDS SUMMARY | 2025-02-11 02:23 | XMS_ITS | Clinical Summary ---
Author Organization [facility] [place] Address [address] [place] [address] Care Team Providers Care Forming Department End Finder Name Role Phone Olga Baker MD Primary Care Provider [phone] Allergies Active Allergy Reactions Criticality Noted Date [...] (12/25/2019): Added automatically from request for surgery [id number] Screening for colon cancer 12/01/2019 Overview (12/01/2019): Added automatically from request for surgery [id number] Lump in testis 07/15/2019 Assessment & Plan (07/15/2019 12:28 PM ANESTHESIA ASSOCIATE): Painful small. Would like to see urologist so referral placed Mixed hyperlipidemia 05/22/2016 Assessment & Plan (07/15/2019 12:27 PM ANESTHESIA ASSOCIATE): Con't fish oil. Will get cholesterol panel Type 2 diabetes mellitus wit hout complication ([facility]) 06/07/2015 Overview (11/23/2024): Overview: Bariatric surgery 2011, [...] Proctor. 05/29 currently seeing a uro in [facility]) Essential (primary) hypertension 05/26/2013 Overview (08/25/2018): Overview: 05/29 well controlled on cozaar Assessment & Plan (07/15/2019 12:26 PM ANESTHESIA ASSOCIATE): Well controlled. Will get labs con't current regimen Calculus of kidney 07/08/2012 Overview (08/25/2018): Overview: Had lithotripsy Metabolic syndrome 11/29/2009 Resolved Problems Problem Noted Date Diagnosed Date Resolved Date Intestinal obstruction ([facility]) 07/08/2012 07/15/2019 Overview (08/25/2018): Overview: Had to have surgical intervention Encounters Date Type Department Care Team Description 02/08/2025 9:25 AM CDT - 02/08/2025 11:59 PM CDT Hospital Encounter [facility] [address] [place] [address] Ciara Gómez V, OT Daniel Pennington NP Carpal Tunnel Discharge Disposition: Home or Self Care (Routine Discharge) 02/08/2025 Travel 02/04/2025 11:00 AM CDT Office Visit [facility] - [address] [address] Daniel Pennington NP Postop Followup (post op right ctr cubital tunnel sx 01/27/25) 02/04/2025 Travel 01/27/2025 1:23 PM CDT - 01/27/2025 2:[address] [place] [address] Quinton Brown MD right endoscopic carpal tunnel release 01/27/2025 1:06 PM CD[address] Anesthesia [place] [address] Aubree Ulloa MD Jackson, Samantha Rae, FNP 01/27/2025 10:09 AM CDT - 01/27/2025 4:00 PM CDT Hospital Encounter [facility] [address] Quinton Brown MD Discharge Disposition: Home or Self Care (Routine Discharge) 01/27/2025 Travel 01/22/2025 MyChart Message Enc [facility] [place] [address] [facility] Provider SURGERY INSTRUCTIONS 01/21/2025 8:40 AM CDT Office Visit [facility] [address] [place] [address] Daniel Pennington NP Follow Up (RT CTS and Cubital tunnel) 01/21/2025 Prep for Procedure [facility] [address] [place] [address] Quinton Brown MD 01/21/2025 Travel 01/17/2025 Results Follow-Up [facility] [address] [address] Olga Baker MD TISSUE EXAM BY PATHOLOGIST ([facility] ONLY) 01/08/2025 2:00 PM CDT Office Visit [facility] [address] [address] Olga Baker MD Weight Check 01/08/2025 Scan [facility] INFO SRVCS Scanned, [facility] 01/08/2025 Travel 01/06/2025 9:06 AM CDT - 01/06/2025 11:59 PM CDT Hospital Encounter [facility] [address] [place] [address] Ciara Gómez V, Daniel Botello MACHINE PAINT MIXER Carpal Tunnel Discharge Disposition: Home or Self Care (Routine Discharge) 01/06/2025 Travel 01/01/2025 Telephone [facility] [address] [address] Olga Baker MD Referral 12/24/2024 1:43 PM CDT - 12/24/2024 11:59 PM CDT Hospital Encounter [facility] [address] [place] [address] Ciara Gómez OT Loar, Ricki S, NP Carpal Tunnel Discharge Disposition: Home or Self Care (Routine Discharge) 12/24/2024 Travel 12/23/2024 8:40 AM CDT Office Visit [facility] [address] [place] [address] Daniel Pennington NP Postop Followup (post op left ctr cubital tunnel sx 12/16/04) 12/23/2024 Travel 12/16/2024 8:30 AM CDT - 12/16/2024 9:57 AM CDT [place] [address] Quinton Brown MD left endoscopic carpal tunnel release 12/16/2024 8:01 AM CDT Anesthesia [place] [address] Aubree Ulloa MD Jackson, Samantha Rae [facility] 12/16/2024 6:10 AM CDT - 12/16/2024 10:33 AM CDT Hospital Encounter [facility] [place] [address] Quinton Brown MD Discharge Disposition: Home or Self Care (Routine Discharge) 12/16/2024 Travel 12/09/2024 Travel 12/02/2024 Prep for Procedure [facility] [address] [place] [address] Quinton Brown MD 12/01/2024 8:00 AM CDT Office Visit [facility] [address] [place] [address] Daniel Pennington NP New Patient (Bilateral CTS) 12/01/2024 Travel 11/23/2024 7:40 AM CDT Office Visit [facility] [address] [address] Olga Baker MD Follow Up; Pain (Pt c/o increased pain from nerve conduction on 11/16. ) 11/23/2024 Telephone [facility] [place] [id number] [place] [address] Olga Baker MD Follow Up Call 11/23/2024 Travel 11/20/2024 Telephone [facility] [address] [address] Olga Baker MD Results; Question 11/17/2024 Results Follow-Up [address] [address] Olga Baker MD NCVS\EMG ([facility]) 11/16/2024 8:00 AM CDT Office Visit [facility] - [address], [address] [place] [address] Olga Baker MD Govindarajan, Raghav, MD EMG Testing (BUE*CARPAL TUNNEL SYNDROME LEFT WRIST) 11/16/2024 Scan [facility] INFO SRVCS Scanned, [facility] EMG [...] free 12/02/2019 Tdap (Generic) 07/08/2012 Zoster (Zostavax) 13144 Unt/0.65Ml 07/08/2012 Family History Medical History Relation [...] Sex Assigned at Male 08/03/2024 7:45 AM ANESTHESIA ASSOCIATE Legal Sex Male 7:03 PM CDT Gender [...] Description 03/04/2025 10:[address] [facility] [address] [place] [address] [place] [address] [place], [place] [id number] [place] [address] [facility]. [address] [place] [phone] 05/21/2025 7:40 AM ANESTHESIA ASSOCIATE Laboratory Only [facility] [address] [place] [address] 05/28/2025 7:40 AM ANESTHESIA ASSOCIATE Office Visit [facility] [address] [place] [address] [place] [address] [facility] [employer]. [address] [address] [phone] Health Maintenance Due Date Last Done Comments [...] Years Completed 05/03/2021, 07/15/2019, 06/17/2005 PHQ-2 (Physician [place]) Completed 08/03/2024 Meningococcal B Vaccine Aged Out [...] Date/Time Associated Diagnosis Comments PROCEDURE GENERIC 01/27/2025 2:47 PM CDT WRIST ARTHROSCOP,RELEASE XVERS LIG 01/27/2025 [...] right Case Notes SCHED BY HARJINDER 12/03/2024 JOSE PHONE ASSESS WRIST ARTHROSCOP,RELEASE XVERS LIG 12/16/2024 8:01 AM CDT Carpal tunnel syndrome on right Cubital tunnel syndrome on right Case Notes SCHED BY HARJINDER 12/03/2024 JOSE PHONE ASSESS EMG Routine 11/16/2024 8:00 AM CDT Carpal tunnel syndrome of left wrist EMG GENERIC (SCAN ORDER) 11/16/2024 HEMOGLOBIN, GLYCOSYLATED Routine 08/31/2024 7:03 AM CDT Prediabetes LIPID PANEL Routine 05/01/2024 8:05 AM ANESTHESIA ASSOCIATE Mixed hyperlipidemia HEPATITIS C ANTIBODY W/RFX TO HCV RNA Routine 05/11/2020 7:35 AM ANESTHESIA ASSOCIATE Need for hepatitis C screening test COLONOSCOPY GENERIC (SCAN ORDER) Routine 12/30/2019 from Last 3 Months or Most Recently Relevant to Health Maintenance Results * PROCEDURE GENERIC (01/27/2025 2:47 PM CDT) us Quinton Brown MD [facility] Edited Result - Final * TISSUE EXAM BY PATHOLOGIST ([facility] ONLY) (01/08/2025 2:25 PM CDT) CLINICAL INFORMATION: None given [facility] [employer] [facility] PATHOLOGIST (QST PAP) [facility] [employer] [facility] Comment: Ramakrishna Smart Jr., M.D. Board Certified in Anatomic Pathology, Clinical Pathology and Cytopathology, Specializing in Urologic Pathology (electronic signature) Pathologist Release Date/Time: 01/13/2025 02:32PM SOURCE (QST) Skin, left ear, biopsy [facility] [employer] [facility] SPEC DESCRIPTION [facility] Comment: Specimen is received in 10% neutral buffered formalin, labeled with multiple patient identifier(s) and consists of one small piece from a skin biopsy measuring 0.2 x 0.2 x 0.2 cm, irregular in shape and shelby-brown in color. The margins are inked green. The specimen is entirely submitted in one cassette(s). Gross exam(s) performed at: [employer] [address] [address] Model Maker Plaster: HARRISON HARRIS MD PRIMARY DIAGNOSIS: Hypertrophic actinic keratosis. [employer] [facility] 01/08/2025 2:25 PM CDT 01/11/2025 8:15 PM CDT Narrative Resulting Agency Comment Performing Organization Information: Site ID: [place] Name: [facility] Address: [address] [place] [id number] Director: Harrison Harris Olga Baker MD PATHOLOGY/CYTOLOGY ORDERABLES Final Result [facility] [address] [place] [address], [place] * Lesion Biopsy (01/08/2025 2:00 PM [...] Malignancy: malignancy unknown Destruction method: shave biopsy Olga Baker MD PROCEDURE/MINOR SURGICAL ORDER DANII Final Result * NCVS\EMG ([facility]) (11/16/2024 8:00 AM CDT) Isaak Pacheco MD - 11/16/2024 8:00 AM CDT Isaak [...] nerve conduction studies, the amplitude is measured [id number]-[id number], the latency reported is the distal peak latency, and the conduction velocity, if measured, is determined from onset latencies and is over the forearm. For motor nerve conduction studies, the amplitude is measured fjxjbsyt-kv-xadt, the latency reported is the distal onset [...] I, Sarah O, Verónica R, Robles E, Nikhilo P, Douglas F, Marlee'Patsy P, Jessica P. 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 Neurol Sci. 2001 Jul;22(1):11-6. Summary of findings: Bilateral median motor NCS [...] A1C 5.7(H) <5.7 % of total Hgb [employer] [facility] Comment: For someone without known diabetes, [...] Agency Comment Performing Organization Information: Site ID: [place] Name: [employer] [place] Address: [address] [place] [address] Director: Shirlene Fregoso MD Olga Baker MD LABORATORY Final Result [employer] JOSE Daniels ALY[facility] [address] [place] [address], * LIPID PANEL (05/01/2024 8:05 AM ANESTHESIA ASSOCIATE) CHOLESTEROL 162 <200 mg/dL [facility] [employer] [facility] HDL 56 > OR = 40 mg/dL [employer] [facility] TRIGLYCERIDES 94 <150 mg/dL [facility] [employer] [facility] LDL (CALCULATED) 87 mg/dL (calc) [facility] [employer] [facility] Comment: Reference range: <100 Desirable range <100 mg/dL for primary prevention; <70 mg/dL for patients with CHD or diabetic patients with > or = 2 CHD risk factors. LDL-C is now calculated using the Kole calculation, which is a validated novel method providing better accuracy than the Friedewald equation in the estimation of LDL-C. Vicente JOHNSON et al. AURA. 2013;310(19): 0758-7987 (http://education.roomlinx/faq/OLC696) CHOL/HDL RATIO 2.9 <5.0 (calc) [employer] [facility] NON HDL CHOLESTEROL 106 <130 mg/dL (calc) [employer] [facility] Comment: For patients with diabetes plus 1 major ASCVD risk factor, treating to a non-HDL-C goal of <100 mg/dL (LDL-C of <70 mg/dL) is considered a therapeutic option. 05/01/2024 8:05 AM ANESTHESIA ASSOCIATE 05/03/2024 12:12 AM ANESTHESIA ASSOCIATE Narrative Resulting Agency Comment Performing Organization Information: Site ID: [place] Name: [employer] Address: [address] [place] [address] Director: Shirlene Fregoso MD Olga Baker MD LABORATORY Final Result BRAULIO HILLMAN [employer] [facility] [address] [place], [place] [address] * HEPATITIS C ANTIBODY W/RFX TO HCV RNA ([facility] ONLY) (05/11/2020 7:35 AM ANESTHESIA ASSOCIATE) HEPATITIS C AB NON-REACTI VE NON-REACT IRMA [facility] SIGNAL TO CUTOFF 0.01 <1.00 [facility] Comment: HCV antibody was non-reactive. There is no laboratory evidence of HCV infection. In most cases, no further action is required. However, if recent HCV exposure is suspected, a test for HCV RNA (test code 29993) is suggested. For additional information please refer to http://education.veriCAR/faq/HOJ09a0 (This link is being provided for informational/ educational purposes only.) 05/11/2020 7:35 AM ANESTHESIA ASSOCIATE 05/12/2020 3:46 AM ANESTHESIA ASSOCIATE us Rekha Helms MD LABORATORY Final Result [facility] [address] [id number] * COLONOSCOPY (12/30/2019) us Documents Scanned SCANNING Final Result [facility] ONBASE from Last 3 Months or Most Recently Relevant to Health Maintenance [place] [id number] Care Teams Forming Department End Finder Relationship Specialty [place] [address] [address] [id number] PCP - General FAMILY PRACTICE 10/18/22
--- NOTE | 2025-02-11 06:04 | WPDHPUPDATE1 ---
History and Physical Update Update Date/Time: 02/11/25 06:04 History and Physical has been reviewed, including an updated exam of the patient. There are NO changes in the patient's condition. Risks, benefits, and alternatives have been discussed and questions answered. Patient agrees to proceed with procedure.
--- NOTE | 2025-02-11 07:46 | P.PNAN_ITS ---
Anes - Initial Pre Proc Eval Procedure: Operation Date: 02/11/25 08:30 Proposed Procedures p Trans Urethral Resection Prostate - Gopi Vernon MD Date/Time: 02/11/25 07:46 Surgeon: Gopi Vernon MD Pre Op Diagnosis: BPH Patient Data Age: 75 Gender: M Height: 1.74 m Weight: 70 kg Last Vital Signs Temp 36.2 C L 02/11/25 06:30 Pulse 54 L 02/11/25 06:30 Resp 16 02/11/25 06:30 BP 120/71 02/11/25 06:30 Pulse Ox 99 02/11/25 06:30 O2 Del Method Room Air 02/11/25 06:30 Allergies Allergy/AdvReac Type Severity Reaction Status Date / Time No Known Allergies Allergy Verified 02/11/25 07:19 Home Medications ?Medication ?Instructions ?Recorded ?Confirmed ?Type cholecalciferol (vitamin D3) 50 50 mcg PO DAILY 02/04/25 History mcg (2,000 unit) capsule (D3-2000) ferrous sulfate 325 mg (65 mg 65 mg PO DAILY 02/04/25 02/11/25 History iron) tablet (FeroSul) finasteride 5 mg tablet 5 mg PO DAILY 02/04/2502/04 History losartan 25 mg tablet 25 mg PO DAILY 02/04/2501/16 History jmsoeqlz-pqn-mlvq 2.25 mg-folic 1 tablet PO DAILY 01/1602/11/25 History acid 100 yyp-Vb02-W7Yw10-V9-zfltv acid tablet (K-[place] Immune Support) omega 5-tlr-one-fish oil 1,000 mg 1 cap PO DAILY 02/0402/11/25 History (120 mg-180 mg) capsule (Fish Oil) pravastatin 10 mg tablet 10 mg PO HS 02/04/25 5 History tamsulosin 0.4 mg capsule 0.4 mg PO DAILY 02/04/25 History tramadol 50 mg tablet 50 mg PO Q6H PRN pain 02/04/25 History Patient hx anesthesia problems: other (issues with apnea in PACU in past.) Family hx anesthesia problems: none Results Review: All pre-operative results and documents have been reviewed as part of the pre- operative evaluation. [facility] Past Medical History Medical History (Updated 02/11/25 @ 07:51 by Darrell Baumann DO) Hyperlipidemia Hypertension Surgical History Surgical History (Updated 02/11/25 @ 07:51 by Darrell Baumann DO) History of gastric bypass Social History Social History Smoking status: Never smoker Second hand tobacco smoke exposure: No Alcohol intake: current Alcohol use details: 2 per month Substance use: current Substance use type: marijuana Other substance usage details: smoke it most evening Living arrangements: with family Additional living arrangements comments: Daughter Spiritual care concerns: No Anes - Eval Final PreProcedure Day of Procedure 02/11/25 07:46 Patient weight: normal Heart: regular rate and rhythm Lungs: clear to auscultation and normal air movement Airway: Mallampati scale class II Neurological: alert and oriented Last oral intake: >/= 8 hours ASA classification: III Emergent: no Anesthetic plan: proceed Anesthesia type and monitoring: general LMA and standard monitoring Results Review: All pre-operative results and documents have been reviewed as part of the pre- operative evaluation. Informed Consent: The patient's anesthetic plan and its attendant risks and benefits were discussed with the patient/family/POA. Questions were solicited and answers provided to the satisfaction of the patient/family/POA.
[2025-02-11] MEDS: ceFAZolin 2 GM in SODIUM CHLORIDE 0.9% IV 50 ML 100 ML IVPB (08:23)
[2025-02-11] MEDS: LIDOCAINE 2% GEL UROJET 10 ML PKG MUCOUS MEM (08:47)
--- NOTE | 2025-02-11 09:04 | S_PTH ---
PATIENT: Jorden Griffin LOC: [facility] U#:[id number] AGE/SX: 75/M ROOM: RE02/11/[address]: Gopi Vernon MD : 1950 BED: DIS: 02/12/2025 SPEC #: [id number] RECD: 02/11/25 10:37 STATUS: [facility] REQ #: [id number] DEVI: 02/11/25 09:[address]: Gopi Vernon DEPT: [facility] Surgical RECD BY: Esperanza Luna ENTERED: 02/11/25 10:37 SP TYPE: Surgical OTHR DR: Olga BakerMD Tissues: A - Prostate Turp Procedures: Hematoxylin and Eosin Stain Gross and Microscopic Level 4
[2025-02-11] MEDS: LACTATED RINGERS 1,000 ML 30 ML IV CONT ×2 (09:22)
--- NOTE | 2025-02-11 09:23 | P.OP_ITS ---
Procedure Note - Detailed Date of Procedure 02/11/25 Pre-op Diagnosis BPH Post-op Diagnosis Same Procedure Performed TURP Surgeon Gopi Vernon MD Anesthesia General Description of Procedure The patient was brought to the operative suite where he is prepped and draped in routine sterile fashion while in the dorsal lithotomy position after the uneventful induction of a general LMA anesthetic. A 27 [place] resectoscope sheath was placed into his bladder. He had no urethral strictures. The patient had trilobar hyperplasia with a median lobe. The bladder itself was endoscopically normal, showing no mucosal hyperemia, intravesical neoplasm or foreign bodies. There was a single, orthotopic ureteral orifice bilaterally. These orifices were identified and preserved throughout the remainder of the procedure. Attention was first turned to resection of the median lobe. This resection was undertaken from the bladder neck to the verumontanum and carried out until the transverse fibers of the bladder neck were identified. The left lateral lobe was then resected starting at the 6 o'clock position, working counter clockwise to the 12 o'clock position. Again, resection was carried out from the bladder neck to the verumontanum until the capsular fibers of the prostate were identified. The right lateral lobe was resected in a similar fashion starting at the 6 o'clock position working clockwise to the 12 o'clock position and carried out until the capsular fibers of the prostate were identified. Apical tissue was then circumferentially resected. All chips were evacuated from the bladder using an [employer] evacuator. Hemostasis was obtained with electric cautery. The ureteral orifices were again inspected and found to be without injury. Estimated blood loss throughout this procedure was 75cc. The patient was taken to recovery room having tolerated this well. Drains Yes Packing No Pathology Yes Complications No immediate complications
[2025-02-11] MEDS: fentaNYL CITRATE INJ (*CRX) 100 MCG/2 ML VIAL 25 MCG IV PUSH ×6 (09:29→09:56)
--- NOTE | 2025-02-11 10:51 | ADMGEN ---
This patient, Jorden Griffin, was admitted to [facility] Surg Room 331-02. Patient/family oriented to hospital policies and general routines including ID bracelet, bed and alarms, visiting hours, pain management, procedures, bathroom and other care routines, personal items, smoking policy, room service/diet, and visiting hours. Information on how to activate the Rapid Response Team has been discussed. Patient/Family are encouraged to report perceived risks to care and to ask questions if they do not understand what they are told or what they should do.
[2025-02-11] MEDS: ceFAZolin 1 GM in SODIUM CHLORIDE 0.9% IV 50 ML 100 ML IVPB (16:17)
[2025-02-11] MEDS: DOCUSATE SODIUM 100 MG CAPSULE PO (16:27)
[2025-02-11] MEDS: PRAVASTATIN SODIUM 10 MG TABLET PO (20:18)
[2025-02-11] MEDS: oxyCODONE HCL (*CRX) 5 MG TAB IR PO (20:18)
[2025-02-12 03:10] VITALS: BP 116/64; PULSE 50; RESP 16; TEMP 36.4; O2SAT 99
[2025-02-12] MEDS: ceFAZolin 1 GM in SODIUM CHLORIDE 0.9% IV 50 ML 100 ML IVPB (04:39)
[2025-02-12 05:46] VITALS: BP 116/64; PULSE 50; RESP 16; TEMP 36.4; O2SAT 99
[2025-02-12 06:19] LABS: Hematocrit 36.0 % (42.0-52.0); Hemoglobin 11.4 g/dL (14.0-18.0)
[2025-02-12 06:39] LABS: Anion Gap 3 mmol/L (4-12); Blood Urea Nitrogen 15 mg/dL (9-20); Calcium 9.0 mg/dL (8.4-10.2); Carbon Dioxide 28 mmol/L (22-30); Chloride 103 mmol/L (98-107); Estimated CRCL calculation 69 ml/min; Estimated Glomerular Filt Rate > 60; Glucose 102 mg/dL (65-110); Potassium 4.0 mmol/L (3.4-5.0); Sodium 134 mmol/L (137-145)
--- NOTE | 2025-02-12 07:05 | P.PNUR_ITS ---
Progress Note: A&P Assessment and Plan (1) BPH loc w urin obs/LUTS: Code(s): N40.1 - Benign prostatic hyperplasia with lower urinary tract symptoms Status: Acute Assessment and Plan: * Stop CBI * Voiding trial later this morning if urine remains clear Subjective Subjective Date/Time Seen: 02/12/25 07:05 Interval history: Comfortable, no complaints Review of Systems Cardiovascular: Cardiovascular: Denies chest pain, Denies lightheadedness, Denies palpitations and Denies dyspnea Respiratory: Respiratory: Denies dyspnea Gastrointestinal: Gastrointestinal: Denies diarrhea, Denies nausea and Denies vomiting Genitourinary: Genitourinary: Denies hematuria and Denies dysuria Endocrine: Endocrine: Denies palpitations Exam Const: General: no acute distress Resp: Effort & Inspection: normal respiratory effort GI: Inspection: non-distended GI Palp: No abdominal tenderness and No Guarding due to palpation present (GI) Auscultation: normal bowel sounds Urinary Catheter: Urinary Catheter: patent and draining and urine clear Objective Data Vital Signs Vital Signs: Vital Signs - 24 hr 02/11/25 09:22 02/11/25 09:40 02/11/25 09:40 Temperature 97.4 F L 97 F L Pulse Rate 54 L 60 45 L Respiratory Rate 12 12 15 Blood Pressure 128/81 104/59 L 115/64 Pulse Oximetry 99 95 99 Oxygen Delivery Simple Face Mask Simple Face Mask Oxygen Flow Rate 8 8 02/11/25 09:55 02/11/25 10:10 02/11/25 10:10 Temperature 97 F L Pulse Rate 58 L 51 L 47 L Respiratory Rate 12 12 15 Blood Pressure 118/71 113/66 122/61 Pulse Oximetry 95 96 98 Oxygen Delivery Room Air Room Air Oxygen Flow Rate 02/11/25 10:25 02/11/25 11:10 02/11/25 13:31 Temperature 97 F L Pulse Rate 58 L 47 L Respiratory Rate 14 15 Blood Pressure 111/67 116/65 Pulse Oximetry 95 99 Oxygen Delivery Room Air Room Air Oxygen Flow Rate 02/11/25 15:10 02/11/25 19:10 02/11/25 20:00 Temperature 96 F L 97.3 F L Pulse Rate 55 L 50 L 50 L Respiratory Rate 15 16 16 Blood Pressure 108/72 120/71 Pulse Oximetry 98 99 99 Oxygen Delivery Room Air Oxygen Flow Rate 02/11/25 23:10 02/12/25 03:10 02/12/25 05:46 Temperature 97.9 F 97.5 F L 97.5 F L Pulse Rate 44 L 50 L 50 L Respiratory Rate 16 16 16 Blood Pressure 105/63 116/64 116/64 Pulse Oximetry 97 99 99 Oxygen Delivery Oxygen Flow Rate Intake/Output Intake/Output: Intake & Output 02/09/25 02/10/25 02/11/25 02/12/25 23:59 23:59 23:59 23:59 Intake Total 1580 6900 Output Total 4650 7850 Balance -9470 -568 Meds/Results Medications: Active Medications Generic Name Dose Route Start Last Admin Trade Name Freq PRN Reason Stop Dose Admin Hydrocodone Bitart/Acetaminophen 1 tab 02/11/25 09:25 Hydrocodone/Acetaminophen (*Crx) 5-325 Mg Tablet PO Q4H PRN Pain Rated 1-6 Cephalexin HCl 500 mg 02/12/25 09:00 Cephalexin 500 Mg Capsule PO QID RUTH Docusate Sodium 100 mg 02/11/25 17:00 02/11/25 16:27 Docusate Sodium 100 Mg Capsule PO 100 mg BID RUTH Administration Fentanyl Citrate 25 mcg 02/11/25 07:52 02/11/25 09:56 Fentanyl Citrate Inj (*Crx) 100 Mcg/2 Ml Vial IV PUSH 25 mcg Q2M PRN Administration Pain Ferrous Sulfate 325 mg 02/12/25 09:00 Ferrous Sulfate [address] BY MOUTH DAILY RUTH Finasteride 5 mg 02/12/25 09:00 Finasteride 5 Mg Tablet PO DAILY RUTH Hyoscyamine 0.125 mg 02/11/25 09:25 Hyoscyamine Sulfate 0.125 Mg Tablet SUBLINGUAL Q6H PRN Bladder Spasm Lactated Ringer's 1,000 mls @ 30 mls/hr 02/11/25 07:55 02/11/25 09:22 Lr - Lactated Ringers Iv IV CONT 30 mls/hr .Q24H RUTH Administration Lactated Ringer's 1,000 mls @ 30 mls/hr 02/11/25 07:55 02/11/25 10:28 Lr - Lactated Ringers Iv IV CONT Infused .Q24H RUTH Infusion Losartan Potassium 25 mg 02/12/25 09:00 Losartan Potassium 25 Mg Tablet PO DAILY [facility] Miscellaneous Information 1 each 02/11/25 00:01 All Pain Scales Currently Covered. Do You Want To Hold Home Tramadol Or D/C One Of The Oth XX 03/13/25 00:00 CLARIFY [facility] Morphine Sulfate 2 mg 02/11/25 09:25 Morphine Sulfate (*Crx) 2 Mg/Ml Inj IV PUSH Q2H PRN Pain Rated 7-10 Naloxone HCl 0.1 mg 02/11/25 09:25 Naloxone Hcl 0.4 Mg/Ml Vial IV PUSH Q2M PRN Opiate Reversal Ondansetron HCl 4 mg 02/11/25 07:52 Ondansetron Inj 4 Mg/2 Ml Vial IV PUSH ONCE PRN Nausea Ondansetron HCl 4 mg 02/11/25 09:25 Ondansetron Inj 4 Mg/2 Ml Vial IV PUSH Q12H PRN Nausea And Vomiting Oxycodone HCl 5 mg 02/11/25 07:52 02/11/25 20:18 Oxycodone Hcl (*Crx) 5 Mg Tab Ir PO 5 mg ONCE PRN Administration Pain Pravastatin Sodium 10 mg 02/11/25 21:00 02/11/25 20:18 Pravastatin Sodium 10 Mg Tablet PO 10 mg HS RUTH Administration Tramadol HCl 50 mg 02/11/25 10:29 Tramadol Hcl (*Crx) 50 Mg Tablet PO Q6H PRN Pain Labs Labs: Laboratory Results - last 24 hr 02/12/25 06:02 Hgb 11.4 L Hct 36.0 L Sodium 134 L Potassium 4.0 Chloride 103 Carbon Dioxide 28 Anion Gap 3 L BUN 15 Creatinine 0.81 Estim Creat Clear Calc 69 Estimated GFR > 60 Glucose 102 Calcium 9.0
[2025-02-12 07:10] VITALS: BP 113/68; PULSE 51; RESP 18; TEMP 36.5; O2SAT 97
[2025-02-12] MEDS: FINASTERIDE 5 MG TABLET PO (08:36)
[2025-02-12] MEDS: LOSARTAN POTASSIUM 25 MG TABLET PO (08:36)
[2025-02-12] MEDS: FERROUS SULFATE 325 MG TABLET DR BY MOUTH (08:36)
[2025-02-12] MEDS: DOCUSATE SODIUM 100 MG CAPSULE PO (08:36)
[2025-02-12] MEDS: CEPHALEXIN 500 MG CAPSULE PO ×2 (08:36→12:31)
[2025-02-12] MEDS: HYDROcodone/acetaminophen (*CRX) 5-325 MG TABLET 1 TAB PO (08:43)
--- NOTE | 2025-02-12 13:24 | PM.DS ---
DS: Admitting Diagnosis Discharge Date 02/12/2025 Admitting Diagnosis BPH DS: Discharge Diagnosis Discharge Diagnosis (1) BPH loc w urin obs/LUTS: Code(s): N40.1 - Benign prostatic hyperplasia with lower urinary tract symptoms Status: Acute DS: Summary Hospital Course Hospital Course: After discussion of therapeutic options, including but not limited to, minimally invasive surgery such as UroliftArvin in laser prostatectomy, he has elected for a TURP. He is aware of risk of this including, but not limited to adverse cardiopulmonary events postoperative bleeding, failure to correct his voiding dysfunction, urinary incontinence and erectile dysfunction. Time Spent with Patient Time attestation: Total time spent providing and/or coordinating discharge services: DS: Data Data Completed and Pending Completed studies during hospitalization: Pending at discharge 02/11/25 09:04 Surgical [PTH] Routine Labs on day of discharge: Labs from last 24 hours 02/12/25 06:02 Hgb 11.4 L Hct 36.0 L Sodium 134 L Potassium 4.0 Chloride 103 Carbon Dioxide 28 Anion Gap 3 L BUN 15 Creatinine 0.81 Estim Creat Clear Calc 69 Estimated GFR > 60 Glucose 102 Calcium 9.0 Discharge Plan Discharge Patient Disposition: Home Discharge Instructions: 1) Activity: No lifting/straining >15lbs. x2 weeks. 2) Diet: Resume normal pre-admission diet. 3) Follow-up: 2-3 weeks / call office for appointment ([phone]). Patient Language: Croatian Stand Alone Forms: General Discharge Instructions Discharge Medications: New hydrocodone-acetaminophen 5-325 mg tablet 1 - 2 tablet PO Q6H PRN (Reason: pain) Qty: 20 0RF docusate sodium [Colace] 100 mg capsule 100 mg PO DAILY Qty: 30 0RF sulfamethoxazole-trimethoprim 800-160 mg tablet 1 tablet PO Q12H Qty: 6 0RF Continued losartan 25 mg tablet 25 mg PO DAILY pravastatin 10 mg tablet 10 mg PO HS ferrous sulfate [FeroSul] 325 mg (65 mg iron) tablet 65 mg PO DAILY tramadol 50 mg tablet 50 mg PO Q6H PRN (Reason: pain) [employer] Immune Support 2.25 mg iron- 100 mcg tablet 1 tablet PO DAILY cholecalciferol (vitamin D3) [D3-2000] 50 mcg (2,000 unit) capsule 50 mcg PO DAILY Held omega 1-aei-rzh-fish oil [Fish Oil] 1,000 (120-180) mg capsule 1 cap PO DAILY Hold Instructions: Resume on 02/15/25. Discontinued finasteride 5 mg tablet 5 mg PO DAILY tamsulosin 0.4 mg capsule 0.4 mg PO DAILY
[2025-02-12 14:00] VITALS: BP 113/68; PULSE 51; RESP 18; TEMP 36.5; O2SAT 97
== END 2025-02-12 17:30 | disposition home or self-care (01) ==
LOC: ANHSURGERY 06:43 → ANH3MEDSUR 13:52
PROVIDERS: PCP Family Medicine; Visit Provider Urology
PROC: 0VT08ZZ Resection of Prostate, Via Natural or Artificial Opening Endoscopic (ICD-10-PCS; CPT 52601; principal; 2025-02-11 08:30)
DX: N40.1 Benign prostatic hyperplasia with lower urinary tract symptoms (principal); N13.8 Other obstructive and reflux uropathy; I10 Essential (primary) hypertension; E78.5 Hyperlipidemia, unspecified; F12.90 Cannabis use, unspecified, uncomplicated; Z98.84 Bariatric surgery status
CPT/HCPCS: 52601; 36415; 80048; 85014; 85018; 88305; J0690; A9270; C1757; J1100; J2405; J2704; J3010; J7120